=== PATIENT | female | born 1960 | race Caucasian/White ===

== ENCOUNTER → 2018-02-09 07:11 | Outpatient (CLI) | payer BC, SELFPAY ==
[2018-02-09 08:56] LABS: Cholesterol 202 mg/dL (140-199); HDL Cholesterol 67 mg/dL (40-60); LDL Cholesterol Calculated 108 mg/dL (<100); Triglycerides 133 mg/dL (35-150)
== END ==
PROVIDERS: PCP Family Medicine; Visit Provider Family Medicine
DX: E66.3 Overweight (principal)
CPT/HCPCS: 36415; 80061

== ENCOUNTER 2018-07-03 06:46 | Emergency (ER) | payer BC, SELFPAY ==
[2018-07-03 06:57] VITALS: BP 138/54; PULSE 92; RESP 18; TEMP 36.6; O2SAT 97; BMI 28.1
--- NOTE | 2018-07-03 06:58 | DI.RAD.S_ITS ---
PROCEDURE: XR CHEST 1V INDICATIONS: Cough and fever TECHNIQUE: One view of the chest was acquired. COMPARISON: None. FINDINGS: Surgical changes and devices: None. Lungs and pleura: No pleural effusions or pneumothorax. Lungs are clear. Mediastinum: Mediastinal contours appear normal. Heart size is normal. Bones and chest wall: No suspicious bony lesions. Overlying soft tissues appear unremarkable. IMPRESSION: No acute pulmonary process. Dictated by: Angela Cervantes M.D. on 07/03/2018 at 7:51 Approved by: Angela Cervantes M.D. on 07/03/2018 at 7:52
[2018-07-03] MEDS: ALBUTEROL/IPRATROPIUM 3 ML AMPUL INH (08:03)
[2018-07-03 08:04] VITALS: PULSE 76; RESP 17; O2SAT 98
[2018-07-03 08:19] LABS: Influenza A and B by PCR Rapid Negative (Negative)
--- NOTE | 2018-07-03 08:35 | ED.URI ---
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 She has a bronchospastic cough and her measured peak flows have dipped. She has increased use of her bronchodilators at home and low-grade, subjective fever. Her sputum has changed from clear to yellowish. She denies nausea, vomiting or diarrhea. She denies any recent travel but has exposure to plenty of ill persons MD Complaint: fever, cough, sore throat, rhinorrhea and nasal congestion Onset (ago): day(s) Duration: constant Severity: moderate Relieving factors: rest Description of mucous: clear and yellow Able to tolerate fluids by mouth: Yes Context: sick contacts Associated symptoms: fever, chills, voice changes, rhinorrhea, nasal congestion, sore throat and cough Treatments prior to arrival: none Related Data Home Medications Medication Instructions Recorded Confirmed [MAXIDE] #0 12/23/16 lisinopril [Zestril] #0 12/23/16 Calcium 600 with Vitamin D3 07/03/18 sertraline [Zoloft] 07/03/18 triamterene-hydrochlorothiazid 07/03/18 Previous Rx's Medication Instructions Recorded sulfamethoxazole-trimethoprim 1 tab PO BID #14 tab 12/23/16 albuterol sulfate 1 puff INHALATION Q4-6H PRN #8.5 07/03/18 gram benzonatate [Tessalon Perles] 100 mg PO QID PRN #20 cap 07/03/18 doxycycline hyclate 100 mg PO BID #20 tab 07/03/18 Allergies Allergy/AdvReac Type Severity Reaction Status Date / Time phenobarbital [PHENOBARBITAL] Allergy Mild hives Unverified 07/03/18 07:01 metronidazole [From FLAGYL] Allergy Unknown hives Unverified 07/03/18 07:01 Review of Systems Review of Systems All systems reviewed & are unremarkable except as noted in HPI and below Constitutional Denies chills, Denies fever(s), Denies lethargy and Denies weakness Eyes Denies change in vision, Denies eye discharge, Denies irritation and Denies loss of vision ENT Ears, Nose, Mouth, and Throat: Reports change in voice, Reports nasal congestion, Reports nasal discharge, Denies neck pain and Reports sore throat Cardiovascular Denies chest pain, Denies irregular heart rhythm, Denies lightheadedness, Denies palpitations, Reports dyspnea, Denies dyspnea on exertion and Denies orthopnea Respiratory Reports cough, Reports dyspnea, Denies dyspnea on exertion and Reports wheezing Gastrointestinal Gastrointestinal: Denies abdominal pain, Denies change in bowel habits, Denies diarrhea, Denies nausea and Denies vomiting Genitourinary Denies hematuria, Denies flank pain, Denies urinary incontinence and Denies urinary urgency Musculoskeletal Denies neck pain Integumentary/Breasts Denies pruritus, Denies erythema, Denies rash and Denies wounds Neurologic Denies confusion, Denies loss of vision and Denies weakness Psychiatric Denies anxiety, Denies confusion, Denies depression, Denies homicidal ideation and Denies suicidal ideation Endocrine Denies palpitations Hematologic/Lymphatic Denies easy bruising Allergic/Immunologic Reports wheezing [facility] Medical History C. difficile colitis (Acute) Colon cancer (Acute) Social History Smoking Status: Never smoker Exam Narrative Exam Narrative: GENERAL: 58-year-old female appears to not feel well. HEAD: Atraumatic. Normocephalic. No temporal or scalp tenderness. EYES: Pupils equal round and reactive. Extraocular motions intact. No scleral icterus. No injection or drainage. ENT: Clear nasal drainage bilaterally. Throat without erythema, tonsillar hypertrophy or exudate. Uvula midline. Airway patent. NECK: Trachea midline. No JVD or lymphadenopathy. Supple, nontender, no meningeal signs. CARDIOVASCULAR: Regular rate and rhythm without murmurs, gallops, or rubs. RESPIRATORY: Prolonged expiratory phase with expiratory wheeze in all hartman, no rales or rhonchi GASTROINTESTINAL: Abdomen soft, non-tender, nondistended. No hepato-splenomegaly, or palpable masses. No guarding. EXTREMITIES: No clubbing, cyanosis, or edema. No joint tenderness, effusion, or edema noted. BACK: Nontender without deformity or crepitance. No flank tenderness. NEURO: AOx3. SKIN: No rash or erythema. Initial Vital Signs Initial Vital Signs: Vital Signs Temperature 97.9 F 07/03/18 06:57 Pulse Rate 92 H 07/03/18 06:57 Respiratory Rate 18 07/03/18 06:57 Blood Pressure 138/54 L 07/03/18 06:57 Pulse Oximetry 97 07/03/18 06:57 Course Orders Ordered: ED Orders 07/03/18 06:58 XR chest 1V Stat 07/03/18 07:55 Influenza A and B by PCR Rapid Stat Discontinued Medications Albuterol/Ipratropium (Duoneb) 3 ml INH NOW ONE Stop: 07/03/18 07:48 Last Admin: 07/03/18 08:03 Dose: 3 ml Reevaluation(s) Reevaluation #1: Patient feels with marked improvement after bronchodilators Vital Signs - 8 hr 07/03/18 06:57 07/03/18 08:04 Temperature 97.9 F Pulse Rate 92 H 76 Respiratory Rate 18 17 Blood Pressure 138/54 L Pulse Oximetry 97 98 MDM - URI/Sore Throat Lab Data Lab Results 07/03/18 Range/Units 07:55 Influenza A & B (PCR) Negative (Negative) Imaging Data Chest x-ray: Radiologist's impression: CLOSE Chest X-Ray (Signed) Angela Cervantes - 07/03/18 Launch Image View Report History [address] [address] XRay Report Signed Patient: Nina Niño MR#: [id number] : 1960 Acct:[id number] Age/Sex: 58 / F Date of Service: 07/03/18 Loc: ED Accession Number: [id number] Procedure: XR chest 1V Ordering Provider: Elan Lockhart D.O. PROCEDURE: XR CHEST 1V INDICATIONS: Cough and fever TECHNIQUE: One view of the chest was acquired. COMPARISON: None. FINDINGS: Surgical changes and devices: None. Lungs and pleura: No pleural effusions or pneumothorax. Lungs are clear. Mediastinum: Mediastinal contours appear normal. Heart size is normal. Bones and chest wall: No suspicious bony lesions. Overlying soft tissues appear unremarkable. IMPRESSION: No acute pulmonary process. Dictated by: Angela Cervantes M.D. on 07/03/2018 at 7:51 Approved by: Angela Cervantes M.D. on 07/03/2018 at 7:52 Discharge Plan Departure Patient Disposition: Home Clinical Impression: Upper respiratory infection, viral Instructions: DI for Viral Upper Respiratory Infection -- Adult Activity Restrictions/Additional Instructions: *You have been diagnosed with [ acute viral upper respiratory infection ] *What to do: *Take medications as directed: Your prescriptions have been electronically transmitted to the [facility] at your request *Follow up with your primary care provider in 2-3 days, call for an appointment. Let them know you were seen in the Emergency Department and that we ask that you be seen in follow up *Return to ER if you should have any new, worsening or concerning symptoms Prescriptions: New doxycycline hyclate 100 mg tablet 100 mg PO BID Qty: 20 RF: 0 benzonatate [Tessalon Perles] 100 mg capsule 100 mg PO QID PRN (Reason: cough) Qty: 20 RF: 0 albuterol sulfate 90 mcg/actuation HFA aerosol inhaler 1 puff INHALATION Q4-6H PRN (Reason: bronchospasm) Qty: 8.5 RF: 0 No Action lisinopril [Zestril] 5 MG tablet Qty: 0 RF: 0 sulfamethoxazole-trimethoprim 800 MG/160 MG tablet 1 tab PO BID Qty: 14 RF: 0 [MAXIDE] Qty: 0 RF: 0 triamterene-hydrochlorothiazid 75-50 mg tablet RF: 0 sertraline [Zoloft] 50 mg tablet RF: 0 Calcium 600 with Vitamin D3 RF: 0 Referrals: Meli De La Paz MD [Primary Care Provider] -
[2018-07-03 08:39] VITALS: BP 118/66; PULSE 76; RESP 18; O2SAT 96
[2018-07-03 08:43] VITALS: BP 118/66; PULSE 76; RESP 20; TEMP 36.7; O2SAT 96
--- NOTE | 2018-07-03 08:44 | ED_ITS ---
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 She has a bronchospastic cough and her measured peak flows have dipped. She has increased use of her bronchodilators at home and low-grade, subjective fever. Her sputum has changed from clear to yellowish. She denies nausea, vomiting or diarrhea. She denies any recent travel but has exposure to plenty of ill persons MD Complaint: fever, cough, sore throat, rhinorrhea and nasal congestion Onset (ago): day(s) Duration: constant Severity: moderate Relieving factors: rest Description of mucous: clear and yellow Able to tolerate fluids by mouth: Yes Context: sick contacts Associated symptoms: fever, chills, voice changes, rhinorrhea, nasal congestion , sore throat and cough Treatments prior to arrival: none Related Data Home Medications Medication Instructions Recorded Confirmed [MAXIDE] #0 12/23/16 lisinopril [Zestril] #0 12/23/16 Calcium 600 with Vitamin D3 07/03/18 sertraline [Zoloft] 07/03/18 triamterene-hydrochlorothiazid 07/03/18 Previous Rx's Medication Instructions Recorded sulfamethoxazole-trimethoprim 1 tab PO BID #14 tab 12/23/16 albuterol sulfate 1 puff INHALATION Q4-6H PRN #8.5 07/03/18 gram benzonatate [Tessalon Perles] 100 mg PO QID PRN #20 cap 07/03/18 doxycycline hyclate 100 mg PO BID #20 tab 07/03/18 Allergies Allergy/AdvReac Type Severity Reaction Status Date / Time phenobarbital [PHENOBARBITAL] Allergy Mild hives Unverified 07/03/18 07:01 metronidazole [From FLAGYL] Allergy Unknown hives Unverified 07/03/18 07:01 Review of Systems Review of Systems All systems reviewed & are unremarkable except as noted in HPI and below Constitutional Denies chills, Denies fever(s), Denies lethargy and Denies weakness Eyes Denies change in vision, Denies eye discharge, Denies irritation and Denies loss of vision ENT Ears, Nose, Mouth, and Throat: Reports change in voice, Reports nasal congestion , Reports nasal discharge, Denies neck pain and Reports sore throat Cardiovascular Denies chest pain, Denies irregular heart rhythm, Denies lightheadedness, Denies palpitations, Reports dyspnea, Denies dyspnea on exertion and Denies orthopnea Respiratory Reports cough, Reports dyspnea, Denies dyspnea on exertion and Reports wheezing Gastrointestinal Gastrointestinal: Denies abdominal pain, Denies change in bowel habits, Denies diarrhea, Denies nausea and Denies vomiting Genitourinary Denies hematuria, Denies flank pain, Denies urinary incontinence and Denies urinary urgency Musculoskeletal Denies neck pain Integumentary/Breasts Denies pruritus, Denies erythema, Denies rash and Denies wounds Neurologic Denies confusion, Denies loss of vision and Denies weakness Psychiatric Denies anxiety, Denies confusion, Denies depression, Denies homicidal ideation and Denies suicidal ideation Endocrine Denies palpitations Hematologic/Lymphatic Denies easy bruising Allergic/Immunologic Reports wheezing [facility] Medical History C. difficile colitis (Acute) Colon cancer (Acute) Social History Smoking Status: Never smoker Exam Narrative Exam Narrative: GENERAL: 58-year-old female appears to not feel well. HEAD: Atraumatic. Normocephalic. No temporal or scalp tenderness. EYES: Pupils equal round and reactive. Extraocular motions intact. No scleral icterus. No injection or drainage. ENT: Clear nasal drainage bilaterally. Throat without erythema, tonsillar hypertrophy or exudate. Uvula midline. Airway patent. NECK: Trachea midline. No JVD or lymphadenopathy. Supple, nontender, no meningeal signs. CARDIOVASCULAR: Regular rate and rhythm without murmurs, gallops, or rubs. RESPIRATORY: Prolonged expiratory phase with expiratory wheeze in all hartman, no rales or rhonchi GASTROINTESTINAL: Abdomen soft, non-tender, nondistended. No hepato-splenomegaly , or palpable masses. No guarding. EXTREMITIES: No clubbing, cyanosis, or edema. No joint tenderness, effusion, or edema noted. BACK: Nontender without deformity or crepitance. No flank tenderness. NEURO: AOx3. SKIN: No rash or erythema. Initial Vital Signs Initial Vital Signs: Vital Signs Temperature 97.9 F 07/03/18 06:57 Pulse Rate 92 H 07/03/18 06:57 Respiratory Rate 18 07/03/18 06:57 Blood Pressure 138/54 L 07/03/18 06:57 Pulse Oximetry 97 07/03/18 06:57 Course Orders Ordered: ED Orders 07/03/18 06:58 XR chest 1V Stat 07/03/18 07:55 Influenza A and B by PCR Rapid Stat Discontinued Medications Albuterol/Ipratropium (Duoneb) 3 ml INH NOW ONE Stop: 07/03/18 07:48 Last Admin: 07/03/18 08:03 Dose: 3 ml Reevaluation(s) Reevaluation #1: Patient feels with marked improvement after bronchodilators Vital Signs - 8 hr 07/03/18 06:57 07/03/18 08:04 Temperature 97.9 F Pulse Rate 92 H 76 Respiratory Rate 18 17 Blood Pressure 138/54 L Pulse Oximetry 97 98 MDM - URI/Sore Throat Lab Data Lab Results 07/03/18 Range/Units 07:55 Influenza A & B (PCR) Negative (Negative) Imaging Data Chest x-ray: Radiologist's impression: CLOSE Chest X-Ray (Signed) Angela Cervantes - 07/03/18 Launch Image View Report History [address] [address] XRay Report Signed Patient: Nina Niño MR#: [id number] : 1960 Acct:[id number] Age/Sex: 58 / F Date of Service: 07/03/18 Loc: ED Accession Number: [id number] Procedure: XR chest 1V Ordering Provider: Elan Lockhart D.O. PROCEDURE: XR CHEST 1V INDICATIONS: Cough and fever TECHNIQUE: One view of the chest was acquired. COMPARISON: None. FINDINGS: Surgical changes and devices: None. Lungs and pleura: No pleural effusions or pneumothorax. Lungs are clear. Mediastinum: Mediastinal contours appear normal. Heart size is normal. Bones and chest wall: No suspicious bony lesions. Overlying soft tissues appear unremarkable. IMPRESSION: No acute pulmonary process. Dictated by: Angela Cervantes M.D. on 07/03/2018 at 7:51 Approved by: Angela Cervantes M.D. on 07/03/2018 at 7:52 Discharge Plan Departure Patient Disposition: Home Clinical Impression: Upper respiratory infection, viral Instructions: DI for Viral Upper Respiratory Infection -- Adult Activity Restrictions/Additional Instructions: *You have been diagnosed with [ acute viral upper respiratory infection ] *What to do: *Take medications as directed: Your prescriptions have been electronically transmitted to the [facility] at your request *Follow up with your primary care provider in 2-3 days, call for an appointment. Let them know you were seen in the Emergency Department and that we ask that you be seen in follow up *Return to ER if you should have any new, worsening or concerning symptoms Prescriptions: New doxycycline hyclate 100 mg tablet 100 mg PO BID Qty: 20 RF: 0 benzonatate [Tessalon Perles] 100 mg capsule 100 mg PO QID PRN (Reason: cough) Qty: 20 RF: 0 albuterol sulfate 90 mcg/actuation HFA aerosol inhaler 1 puff INHALATION Q4-6H PRN (Reason: bronchospasm) Qty: 8.5 RF: 0 No Action lisinopril [Zestril] 5 MG tablet Qty: 0 RF: 0 sulfamethoxazole-trimethoprim 800 MG/160 MG tablet 1 tab PO BID Qty: 14 RF: 0 [MAXIDE] Qty: 0 RF: 0 triamterene-hydrochlorothiazid 75-50 mg tablet RF: 0 sertraline [Zoloft] 50 mg tablet RF: 0 Calcium 600 with Vitamin D3 RF: 0 Referrals: Meli De La Paz MD [Primary Care Provider] -
== END 2018-07-03 08:42 | disposition home or self-care (01) ==
PROVIDERS: Emergency Provider Emergency Medicine; Family Provider Family Medicine; PCP Family Medicine
DX: J06.9 Acute upper respiratory infection, unspecified (principal)
CPT/HCPCS: 71045; 87400; 94640; 99282; 99284

== ENCOUNTER 2018-08-25 19:19 | Emergency (ER) | payer OTHER, SELFPAY ==
[2018-08-25 19:29] VITALS: BP 143/62; PULSE 65; RESP 17; TEMP 36.8; O2SAT 100
[2018-08-25] MEDS: SODIUM CHLORIDE 0.9% 1,000 ML 150 ML IV (19:40)
--- NOTE | 2018-08-25 19:57 | DI.RAD.S_ITS ---
PROCEDURE: XR CHEST 1V INDICATIONS: Right-sided chest pain and cough TECHNIQUE: One view of the chest was acquired. COMPARISON: [facility], CR, XR CHEST 1V, 07/03/2018, 7:25. FINDINGS: Surgical changes and devices: Fusion hardware in lower cervical spine seen.. Lungs and pleura: Lungs are clear. No pleural effusions or pneumothorax. Mediastinum: Mediastinal contours appear normal. Heart size is normal. Bones and chest wall: No suspicious bony lesions. Overlying soft tissues appear unremarkable. IMPRESSION: No acute pulmonary pathology. Dictated by: Rogers Turner M.D. on 08/25/2018 at 20:21 Approved by: Rogers Turner M.D. on 08/25/2018 at 20:21
[2018-08-25 20:00] VITALS: BP 121/50; PULSE 74; RESP 14; O2SAT 95
[2018-08-25 20:06] LABS: Add Manual Diff / Slide Review NO; Basophils Absolute Auto 0 /uL (0-100); Basophils Percent Auto 0.6 % (0-2); Eosinophils Absolute Auto 200 /uL (0-450); Hematocrit 41.8 % (36-46); Lymphocytes Absolute Auto 2000 /uL (1100-4500); Lymphocytes Percent Auto 30.6 % (25-40); Mean Corpuscular HGB Conc 33.6 % (30-36); Mean Corpuscular Hemoglobin 30.7 PG (26-34); Mean Corpuscular Volume 91.4 fL (80-100); Monocytes Absolute Auto 700 /uL (0-900); Monocytes Percent Auto 10.7 % (3-14); Neutrophils Absolute Auto 3500 /uL (1500-7000); Neutrophils Percent Auto 55.1 % (50-75); Platelet Count 378 X10^3/uL (150-400); Red Blood Cell Count 4.57 X10^6/uL (4.0-5.2); Red Cell Distribution Width 13.4 % (11.6-14.8); White Blood Cell Count 6.4 X10^3/uL (4.5-11.0)
[2018-08-25 20:10] LABS: D Dimer 257 ng/mL (<230)
[2018-08-25 20:18] LABS: Alanine Aminotransferase 23 IU/L (9-52); Albumin 4.9 g/dL (3.5-5.0); Albumin Globulin Ratio 1.3 (1.0-2.8); Alkaline Phosphatase 78 U/L (38-126); Aspartate Aminotransferase 23 IU/L (14-36); Bilirubin Total 0.4 mg/dL (0.2-1.3); Blood Urea Nitrogen 24 mg/dL (7-17); Calcium 10.7 mg/dL (8.4-10.2); Carbon Dioxide 28 mmol/L (22-32); Chloride 102 mmol/L (98-107); Creatine Kinase 61 U/L (30-135); Estimated Glomerular Filt Rate 46.1 mL/min (>60); Globulin 3.7 g/dL (1.7-4.1); Glucose 87 mg/dL (70-100); HEMOLYSIS < 15 (0-50); Lipase 303 U/L (23-300); Potassium 3.8 mmol/L (3.4-5.1); Sodium 141 mmol/L (137-145); Total Protein 8.6 g/dL (6.3-8.2)
[2018-08-25 20:19] LABS: Lactate (Lactic Acid) 1.1 mmol/L (0.7-2.1)
--- NOTE | 2018-08-25 20:21 | ED.CHESTPAIN ---
HPI - Chest Pain <SHAHNAZ Frey - Last Filed: 08/25/18 22:03> General Chief Complaint: Chest Pain Stated Complaint: PAIN IN RT SIDE OF CHEST Time Seen by Provider: 08/25/18 19:36 Source: patient Mode of arrival: ambulatory Limitations: no limitations History of Present Illness HPI narrative: 58-year-old healthy female that is a former smoker here for complaint of pain to her right chest over the past few days. She also reports she has had a productive cough during this timeframe. No fevers no chills. She does report that she has had 2 episodes of pneumonia over the past couple of months. She reports she has completed all of her antibiotics. She was admitted for 1 episode several weeks ago. She does state that her symptoms have resolved since then however she is concerned that her symptoms have returned over the past few days. Positive p.o. intake. No nausea vomiting. She denies any trauma to the chest wall. She is ambulatory into the emergency room. She denies any stressors or relievers of her symptoms. Related Data Home Medications Medication Instructions Recorded Confirmed [MAXIDE] #0 12/23/16 lisinopril [Zestril] #0 12/23/16 Calcium 600 with Vitamin D3 07/03/18 sertraline [Zoloft] 07/03/18 triamterene-hydrochlorothiazid 07/03/18 Previous Rx's Medication Instructions Recorded sulfamethoxazole-trimethoprim 1 tab PO BID #14 tab 12/23/16 albuterol sulfate 1 puff INHALATION Q4-6H PRN #8.5 07/03/18 gram benzonatate [Tessalon Perles] 100 mg PO QID PRN #20 cap 07/03/18 doxycycline hyclate 100 mg PO BID #20 tab 07/03/18 Allergies Allergy/AdvReac Type Severity Reaction Status Date / Time phenobarbital [PHENOBARBITAL] Allergy Mild hives Unverified 07/03/18 07:01 metronidazole [From FLAGYL] Allergy Unknown hives Unverified 07/03/18 07:01 Review of Systems <SHAHNAZ Frey - Last Filed: 08/25/18 22:03> Constitutional Denies chills, Denies fever(s), Denies lethargy and Denies weakness Eyes Denies change in vision, Denies eye discharge, Denies irritation and Denies loss of vision ENT Ears, Nose, Mouth, and Throat: Denies change in voice, Denies neck pain, Denies sore throat and Denies throat swelling Cardiovascular Reports chest pain, Denies irregular heart rhythm, Denies lightheadedness, Denies palpitations and Denies orthopnea Respiratory Reports cough and Denies wheezing Gastrointestinal Gastrointestinal: Denies abdominal pain, Denies change in bowel habits, Denies diarrhea, Denies nausea and Denies vomiting Genitourinary Denies hematuria, Denies flank pain, Denies urinary incontinence and Denies urinary urgency Musculoskeletal Denies neck pain Neurologic Denies confusion, Denies loss of vision and Denies weakness Psychiatric Denies anxiety, Denies confusion, Denies depression, Denies homicidal ideation and Denies suicidal ideation Endocrine Denies palpitations Hematologic/Lymphatic Denies easy bruising Allergic/Immunologic Denies urticaria, Denies throat swelling and Denies wheezing PFSH <SHAHNAZ Frey - Last Filed: 08/25/18 22:03> Medical History C. difficile colitis (Acute) Colon cancer (Acute) Social History Smoking Status: Never smoker Social History Smoking Status: Never smoker Exam <SHAHNAZ Frey - Last Filed: 08/25/18 22:03> Initial Vital Signs Initial Vital Signs: Vital Signs Temperature 98.2 F 08/25/18 19:29 Pulse Rate 65 08/25/18 19:29 Respiratory Rate 17 08/25/18 19:29 Blood Pressure 143/62 H 08/25/18 19:29 Pulse Oximetry 100 08/25/18 19:29 Const General: cooperative and well developed Nutritional Appearance: well nourished Orientation: alert, awake, oriented x3 and not confused HENMN Mouth: oral mucosae normal and moist mucous membranes Throat: posterior oropharynx normal Eyes Conjunctivae: conjunctivae normal Sclera: sclerae normal Pupils: PERRL EOM: EOM intact bilaterally Resp Effort & Inspection: normal respiratory effort, able to speak in complete sentences, no respiratory distress and no use of accessory muscles Auscultation: clear to auscultation bilaterally, no rales, no rhonchi and no wheezes Cardio Rate: regular rate Rhythm: regular rhythm Heart Sounds: no click, no gallops, no murmurs and no rubs Skin General: no rashes or lesions noted, No jaundice and No petechiae Neuro General: alert, oriented x3, gait normal and no focal motor deficits Speech: speech normal <Mariam Robert DO - Last Filed: 08/26/18 02:09> Initial Vital Signs Initial Vital Signs: Vital Signs Temperature 98.2 F 08/25/18 19:29 Pulse Rate 65 08/25/18 19:29 Respiratory Rate 17 08/25/18 19:29 Blood Pressure 143/62 H 08/25/18 19:29 Pulse Oximetry 100 08/25/18 19:29 Course <SHAHNAZ Frey - Last Filed: 08/25/18 22:03> Orders Ordered: ED Orders 08/25/18 19:29 EKG-12 Lead Stat 08/25/18 19:40 Complete Blood Count AUTO DIFF Stat Comprehensive Metabolic Panel Stat D Dimer Stat Lactate (Lactic Acid) Stat Lipase Stat Procalcitonin Stat Troponin & CK Cardiac Panel Stat 08/25/18 19:57 XR chest 1V Stat Discontinued Medications Sodium Chloride (Normal Saline 0.9%) 1,000 mls @ 150 mls/hr IV CONT EVERT Last Infusion: 08/25/18 21:20 Dose: 150 mls/hr Admin: 08/25/18 19:40 Dose: 150 mls/hr Vital Signs - 8 hr 08/25/18 19:29 08/25/18 20:00 08/25/18 20:30 Temperature 98.2 F Pulse Rate 65 74 72 Respiratory Rate 17 14 16 Blood Pressure 143/62 H Blood Pressure [Left Arm] 121/50 L 121/44 L Pulse Oximetry 100 95 96 <Mariam Robert DO - Last Filed: 08/26/18 02:09> Orders Ordered: ED Orders 08/25/18 19:29 EKG-12 Lead Stat 08/25/18 19:40 Complete Blood Count AUTO DIFF Stat Comprehensive Metabolic Panel Stat D Dimer Stat Lactate (Lactic Acid) Stat Lipase Stat Procalcitonin Stat Troponin & CK Cardiac Panel Stat 08/25/18 19:57 XR chest 1V Stat Discontinued Medications Sodium Chloride (Normal Saline 0.9%) 1,000 mls @ 150 mls/hr IV CONT EVERT Last Infusion: 08/25/18 21:20 Dose: 150 mls/hr Admin: 08/25/18 19:40 Dose: 150 mls/hr Vital Signs - 8 hr 08/25/18 19:29 08/25/18 20:00 08/25/18 20:30 Temperature 98.2 F Pulse Rate 65 74 72 Respiratory Rate 17 14 16 Blood Pressure 143/62 H Blood Pressure [Left Arm] 121/50 L 121/44 L Pulse Oximetry 100 95 96 MDM - Chest Pain <SHAHNAZ Frey - Last Filed: 08/25/18 22:03> Lab Data Result diagrams: 08/25/18 19:40 08/25/18 19:40 Lab Results 08/25/18 08/25/18 08/25/18 Range/Units 19:40 19:40 19:40 WBC 6.4 (4.5-11.0) X10^3/uL RBC 4.57 (4.0-5.2) X10^6/uL Hgb 14.0 (12.0-16.0) g/dL Hct 41.8 (36-46) % MCV 91.4 (80-100) fL MCH 30.7 (26-34) PG MCHC 33.6 (30-36) % RDW 13.4 (11.6-14.8) % Plt Count 378 (150-400) X10^3/uL Neut % (Auto) 55.1 (50-75) % Lymph % (Auto) 30.6 (25-40) % [place] % (Auto) 10.7 (3-14) % Eos % (Auto) 3.0 (2-4) % Baso % (Auto) 0.6 (0-2) % Neut # (Auto) 3500 (9960-8217) /uL Lymph # (Auto) 2000 (3452-6547) /uL [place] # (Auto) 700 (0-900) /uL Eos # (Auto) 200 (0-450) /uL Baso # (Auto) 0 (0-100) /uL D-Dimer 257 H (<230) ng/mL Sodium 141 (137-145) mmol/L Potassium 3.8 (3.4-5.1) mmol/L Chloride 102 (98-107) mmol/L Carbon Dioxide 28 (22-32) mmol/L BUN 24 H (7-17) mg/dL Creatinine 1.20 H (0.52-1.04) mg/dL Estimated GFR 46.1 L (>60) mL/min BUN/Creatinine Ratio 20.0 (6-22) Glucose 87 (70-100) mg/dL Lactate (0.7-2.1) mmol/L Calcium 10.7 H (8.4-10.2) mg/dL Total Bilirubin 0.4 (0.2-1.3) mg/dL AST 23 (14-36) IU/L ALT 23 (9-52) IU/L Alkaline Phosphatase 78 (38-126) U/L Total Creatine Kinase 61 (30-135) U/L CK-MB (CK-2) TNP CK-MB (CK-2) Rel Index TNP Troponin I < 0.012 (0.01-0.034) ng/mL Total Protein 8.6 H (6.3-8.2) g/dL Albumin 4.9 (3.5-5.0) g/dL Globulin 3.7 (1.7-4.1) g/dL Albumin/Globulin Ratio 1.3 (1.0-2.8) Lipase 303 H (23-300) U/L Procalcitonin (<0.5) ng/mL 08/25/18 08/25/18 Range/Units 19:40 19:40 WBC (4.5-11.0) X10^3/uL RBC (4.0-5.2) X10^6/uL Hgb (12.0-16.0) g/dL Hct (36-46) % MCV (80-100) fL MCH (26-34) PG MCHC (30-36) % RDW (11.6-14.8) % Plt Count (150-400) X10^3/uL Neut % (Auto) (50-75) % Lymph % (Auto) (25-40) % [place] % (Auto) (3-14) % Eos % (Auto) (2-4) % Baso % (Auto) (0-2) % Neut # (Auto) (7803-2930) /uL Lymph # (Auto) (8286-8497) /uL [place] # (Auto) (0-900) /uL Eos # (Auto) (0-450) /uL Baso # (Auto) (0-100) /uL D-Dimer (<230) ng/mL Sodium (137-145) mmol/L Potassium (3.4-5.1) mmol/L Chloride (98-107) mmol/L Carbon Dioxide (22-32) mmol/L BUN (7-17) mg/dL Creatinine (0.52-1.04) mg/dL Estimated GFR (>60) mL/min BUN/Creatinine Ratio (6-22) Glucose (70-100) mg/dL Lactate 1.1 (0.7-2.1) mmol/L Calcium (8.4-10.2) mg/dL Total Bilirubin (0.2-1.3) mg/dL AST (14-36) IU/L ALT (9-52) IU/L Alkaline Phosphatase (38-126) U/L Total Creatine Kinase (30-135) U/L CK-MB (CK-2) CK-MB (CK-2) Rel Index Troponin I (0.01-0.034) ng/mL Total Protein (6.3-8.2) g/dL Albumin (3.5-5.0) g/dL Globulin (1.7-4.1) g/dL Albumin/Globulin Ratio (1.0-2.8) Lipase (23-300) U/L Procalcitonin < 0.05 (<0.5) ng/mL Urine Dip Bedside Urine Glucose Negative Bedside Urine Bilirubin - Negative Bedside Urine Ketone - Negative Urine Specific [place] 1.025 Bedside Urine Occult Blood - Negative Bedside Urine pH 6.0 Bedside Urine Protein - Negative Bedside Urine Urobilinogen - Negative Bedside Urine Nitrite - Negative Bedside Urine Leukocytes - Negative Esterase Imaging Data Chest x-ray: Radiologist's impression: [address] [address] XRay Report Signed Patient: Nina NiñonMR#: [id number] : 1960Acct:[id number] Age/Sex: 58 / FDate of Service: 08/25/18 Loc: ED Accession Number: [id number] Procedure: XR chest 1V Ordering Provider: Norris Lee PROCEDURE: XR CHEST 1V INDICATIONS: Right-sided chest pain and cough TECHNIQUE: One view of the chest was acquired. COMPARISON: [facility], CR, XR CHEST 1V, 07/03/2018, 7:25. FINDINGS: Surgical changes and devices: Fusion hardware in lower cervical spine seen.. Lungs and pleura: Lungs are clear. No pleural effusions or pneumothorax. Mediastinum: Mediastinal contours appear normal. Heart size is normal. Bones and chest wall: No suspicious bony lesions. Overlying soft tissues appear unremarkable. IMPRESSION: No acute pulmonary pathology. Dictated by: Rogers Turner M.D. on 08/25/2018 at 20:21 Approved by: Rogers Turner M.D. on 08/25/2018 at 20:21 ECG Data Interpretation: EKG shows normal sinus rhythm with no ST elevation or depression. No ectopy. Ventricular rate is 66. Pr interval of 166. QRS duration 94. QTC of 406. MDM Narrative Medical decision making narrative: Chest x-ray was obtained was negative for any acute findings. CBC and Chem panel were also obtained and were unremarkable. No elevated white count. D-dimer was unremarkable at 257. Cardiac enzymes were obtained were negative. Procalcitonin and lactate were normal. EKG shows sinus rhythm with no ST elevation or depression. No ectopy. Differential between cough and chest pain is chest wall pain/pleurisy and viral illness. Plenty of fluids and rest. [id number] ibuprofen as needed for any discomfort. Follow up with primary care provider next few days for re-evaluation. For any worsening symptoms return to the emergency room. <Mariam Robert DO - Last Filed: 08/26/18 02:09> Lab Data Lab Results 08/25/18 08/25/18 08/25/18 Range/Units 19:40 19:40 19:40 WBC 6.4 (4.5-11.0) X10^3/uL RBC 4.57 (4.0-5.2) X10^6/uL Hgb 14.0 (12.0-16.0) g/dL Hct 41.8 (36-46) % MCV 91.4 (80-100) fL MCH 30.7 (26-34) PG MCHC 33.6 (30-36) % RDW 13.4 (11.6-14.8) % Plt Count 378 (150-400) X10^3/uL Neut % (Auto) 55.1 (50-75) % Lymph % (Auto) 30.6 (25-40) % [place] % (Auto) 10.7 (3-14) % Eos % (Auto) 3.0 (2-4) % Baso % (Auto) 0.6 (0-2) % Neut # (Auto) 3500 (7834-2752) /uL Lymph # (Auto) 2000 (3267-6468) /uL [place] # (Auto) 700 (0-900) /uL Eos # (Auto) 200 (0-450) /uL Baso # (Auto) 0 (0-100) /uL D-Dimer 257 H (<230) ng/mL Sodium 141 (137-145) mmol/L Potassium 3.8 (3.4-5.1) mmol/L Chloride 102 (98-107) mmol/L Carbon Dioxide 28 (22-32) mmol/L BUN 24 H (7-17) mg/dL Creatinine 1.20 H (0.52-1.04) mg/dL Estimated GFR 46.1 L (>60) mL/min BUN/Creatinine Ratio 20.0 (6-22) Glucose 87 (70-100) mg/dL Lactate (0.7-2.1) mmol/L Calcium 10.7 H (8.4-10.2) mg/dL Total Bilirubin 0.4 (0.2-1.3) mg/dL AST 23 (14-36) IU/L ALT 23 (9-52) IU/L Alkaline Phosphatase 78 (38-126) U/L Total Creatine Kinase 61 (30-135) U/L CK-MB (CK-2) TNP CK-MB (CK-2) Rel Index TNP Troponin I < 0.012 (0.01-0.034) ng/mL Total Protein 8.6 H (6.3-8.2) g/dL Albumin 4.9 (3.5-5.0) g/dL Globulin 3.7 (1.7-4.1) g/dL Albumin/Globulin Ratio 1.3 (1.0-2.8) Lipase 303 H (23-300) U/L Procalcitonin (<0.5) ng/mL 08/25/18 08/25/18 Range/Units 19:40 19:40 WBC (4.5-11.0) X10^3/uL RBC (4.0-5.2) X10^6/uL Hgb (12.0-16.0) g/dL Hct (36-46) % MCV (80-100) fL MCH (26-34) PG MCHC (30-36) % RDW (11.6-14.8) % Plt Count (150-400) X10^3/uL Neut % (Auto) (50-75) % Lymph % (Auto) (25-40) % [place] % (Auto) (3-14) % Eos % (Auto) (2-4) % Baso % (Auto) (0-2) % Neut # (Auto) (4798-8644) /uL Lymph # (Auto) (0582-1166) /uL [place] # (Auto) (0-900) /uL Eos # (Auto) (0-450) /uL Baso # (Auto) (0-100) /uL D-Dimer (<230) ng/mL Sodium (137-145) mmol/L Potassium (3.4-5.1) mmol/L Chloride (98-107) mmol/L Carbon Dioxide (22-32) mmol/L BUN (7-17) mg/dL Creatinine (0.52-1.04) mg/dL Estimated GFR (>60) mL/min BUN/Creatinine Ratio (6-22) Glucose (70-100) mg/dL Lactate 1.1 (0.7-2.1) mmol/L Calcium (8.4-10.2) mg/dL Total Bilirubin (0.2-1.3) mg/dL AST (14-36) IU/L ALT (9-52) IU/L Alkaline Phosphatase (38-126) U/L Total Creatine Kinase (30-135) U/L CK-MB (CK-2) CK-MB (CK-2) Rel Index Troponin I (0.01-0.034) ng/mL Total Protein (6.3-8.2) g/dL Albumin (3.5-5.0) g/dL Globulin (1.7-4.1) g/dL Albumin/Globulin Ratio (1.0-2.8) Lipase (23-300) U/L Procalcitonin < 0.05 (<0.5) ng/mL Urine Dip Bedside Urine Glucose Negative Bedside Urine Bilirubin - Negative Bedside Urine Ketone - Negative Urine Specific [place] 1.025 Bedside Urine Occult Blood - Negative Bedside Urine pH 6.0 Bedside Urine Protein - Negative Bedside Urine Urobilinogen - Negative Bedside Urine Nitrite - Negative Bedside Urine Leukocytes - Negative Esterase ECG Data Attestation: I personally reviewed and interpreted this ECG as follows: Prior ECG tracings: not available for review Interpretation: Normal sinus rhythm rate 66 T-wave inversion noted in lead [address] elevations or depressions is UT interval 166 no priors to compare Discharge Plan Departure Patient Disposition: Home Clinical Impression: Anterior chest wall pain, Atypical chest pain Discharge Date/Time: 08/25/18 21:14 Interventions: ED Discharge Assessment Last Done: 08/25/18 21:24 Instructions: DI for Atypical Chest Pain Activity Restrictions/Additional Instructions: Chest x-ray read was normal today. Laboratory results were unremarkable. EKG was unremarkable. Differential diagnosis between cough and chest pain is chest wall pain/pleurisy and viral illness. Plenty of fluids and rest. [id number] ibuprofen as needed for any discomfort. Follow up with primary care provider next few days for re-evaluation. For any worsening symptoms return to the emergency room. Prescriptions: No Action lisinopril [Zestril] 5 MG tablet Qty: 0 RF: 0 sulfamethoxazole-trimethoprim 800 MG/160 MG tablet 1 tab PO BID Qty: 14 RF: 0 [MAXIDE] Qty: 0 RF: 0 triamterene-hydrochlorothiazid 75-50 mg tablet RF: 0 sertraline [Zoloft] 50 mg tablet RF: 0 Calcium 600 with Vitamin D3 RF: 0 doxycycline hyclate 100 mg tablet 100 mg PO BID Qty: 20 RF: 0 benzonatate [Tessalon Perles] 100 mg capsule 100 mg PO QID PRN (Reason: cough) Qty: 20 RF: 0 albuterol sulfate 90 mcg/actuation HFA aerosol inhaler 1 puff INHALATION Q4-6H PRN (Reason: bronchospasm) Qty: 8.5 RF: 0 Referrals: Meli De La Paz MD [Primary Care Provider] - <Mariam Robert DO - Last Filed: 08/26/18 02:09> Cosign ED Attending Coszhannaature Attestation: I was immediately available in the department for consultation. Documentation has been reviewed. I agree with assessment and plan.
[2018-08-25 20:30] VITALS: BP 121/44; PULSE 72; RESP 16; O2SAT 96
[2018-08-25 20:41] LABS: Troponin I < 0.012 ng/mL (0.01-0.034)
[2018-08-25 20:47] LABS: Procalcitonin < 0.05 ng/mL (<0.5)
== END 2018-08-25 21:14 | disposition home or self-care (01) ==
PROVIDERS: Emergency Provider Nurse Practitioner Family; Family Provider Family Medicine; PCP Family Medicine
DX: R07.89 Other chest pain (principal)
CPT/HCPCS: 36591; 71045; 80053; 81003; 82550; 83605; 83690; 84145; 84484; 85025; 85379; 93005; 96360; 96361; 99283; 99285

== ENCOUNTER → 2018-11-09 10:59 | Outpatient (CLI) | payer OTHER, SELFPAY ==
--- NOTE | 2018-11-09 11:01 | DI.RAD.S_ITS ---
PROCEDURE: XR CHEST 2V INDICATIONS: cough TECHNIQUE: 2 views of the chest were acquired. COMPARISON: [facility], CR, XR CHEST 1V, 08/25/2018, 20:06. [facility], CR, XR CHEST 1V, 07/03/2018, 7:25. FINDINGS: Surgical changes and devices: Lower cervical spine fusion. Lungs and pleura: Lungs are clear. No pleural effusions or pneumothorax. Mediastinum: Mediastinal contours are normal. Heart size is normal. Bones and chest wall: No suspicious bony abnormalities. Soft tissues appear unremarkable. IMPRESSION: No acute cardiopulmonary disease. Dictated by: Shelley Tanner M.D. on 11/09/2018 at 13:10 Approved by: Shelley Tnaner M.D. on 11/09/2018 at 13:10
== END ==
PROVIDERS: Visit Provider Physician Assistant
DX: R05 Cough (principal)
CPT/HCPCS: 71046

== ENCOUNTER → 2019-05-18 07:09 | Outpatient (CLI) | payer OTHER, SELFPAY ==
[2019-05-18 07:55] LABS: Add Manual Diff / Slide Review NO; Basophils Absolute Auto 0 /uL (0-100); Basophils Percent Auto 0.7 % (0-2); Eosinophils Absolute Auto 200 /uL (0-450); Eosinophils Percent Auto 2.6 % (2-4); Hematocrit 39.4 % (36-46); Hemoglobin 13.6 g/dL (12.0-16.0); Lymphocytes Absolute Auto 1300 /uL (1100-4500); Lymphocytes Percent Auto 21.8 % (25-40); Mean Corpuscular HGB Conc 34.4 % (30-36); Mean Corpuscular Hemoglobin 31.2 PG (26-34); Mean Corpuscular Volume 90.6 fL (80-100); Monocytes Absolute Auto 600 /uL (0-900); Monocytes Percent Auto 10.3 % (3-14); Neutrophils Absolute Auto 3900 /uL (1500-7000); Neutrophils Percent Auto 64.6 % (50-75); Platelet Count 329 X10^3/uL (150-400); Red Blood Cell Count 4.35 X10^6/uL (4.0-5.2); Red Cell Distribution Width 13.1 % (11.6-14.8)
[2019-05-18 08:14] LABS: Alanine Aminotransferase 17 IU/L (<35); Albumin 4.5 g/dL (3.5-5.0); Albumin Globulin Ratio 1.6 (1.0-2.8); Alkaline Phosphatase 90 U/L (38-126); Aspartate Aminotransferase 20 IU/L (14-36); Bilirubin Total 0.7 mg/dL (0.2-1.3); Blood Urea Nitrogen 23 mg/dL (7-17); Calcium 10.2 mg/dL (8.4-10.2); Carbon Dioxide 27 mmol/L (22-32); Chloride 102 mmol/L (98-107); Cholesterol 247 mg/dL (140-199); Estimated Glomerular Filt Rate 56.7 mL/min (>60); Globulin 2.8 g/dL (1.7-4.1); Glucose 106 mg/dL (70-100); HDL Cholesterol 60 mg/dL (40-60); HEMOLYSIS < 15 (0-50); LDL Cholesterol Calculated 151 mg/dL (<100); Sodium 139 mmol/L (137-145); Total Protein 7.3 g/dL (6.3-8.2); Triglycerides 182 mg/dL (35-150)
[2019-05-18 08:29] LABS: Creatinine Urine Random 131.7 mg/dL
[2019-05-18 08:31] LABS: Free T3, Triiodothyronine Free 3.71 pg/mL (2.77-5.27); Free T4, Direct Thyroxine 0.81 ng/dL (0.78-2.19)
[2019-05-18 08:33] LABS: Microalbumi Creatinin Ratio Ur 6.8 ug/mg CR (<30); Microalbumin Urine Random 0.9 mg/dL (0-1.6)
[2019-05-18 08:44] LABS: Thyroid Stimulating Hormone 3.29 uIU/mL (0.47-4.68)
== END ==
PROVIDERS: Visit Provider Nurse Practitioner
DX: Z00.00 Encounter for general adult medical examination without abnormal findings (principal); E78.5 Hyperlipidemia, unspecified; I10 Essential (primary) hypertension
CPT/HCPCS: 36415; 80053; 80061; 82043; 82570; 84439; 84443; 84481; 85025

== ENCOUNTER → 2019-06-21 17:27 | Outpatient (CLI) | payer OTHER, SELFPAY ==
--- NOTE | 2019-06-21 17:28 | DI.MG.S_ITS ---
BILATERAL DIGITAL SCREENING MAMMOGRAM 3D/2D WITH CAD: 06/21/2019 CLINICAL: Routine screening. Family history of breast cancer. Comparison is made to exams dated: 10/16/2017 mammogram, 01/26/2015 mammogram, and 01/27/2014 mammogram - [facility]. There are scattered fibroglandular elements in both breasts. Current study was also evaluated with a Computer Aided Detection (CAD) system. No significant masses, calcifications, or other findings are seen in either breast. There has been no significant interval change. IMPRESSION: NEGATIVE There is no mammographic evidence of malignancy. A 1 year screening mammogram is recommended. This exam was interpreted at Station ID: [id number]. NOTE: For mammograms, a report in lay terms will be sent to the patient. Approximately 15% of breast malignancies will not be visualized mammographically. In the management of a palpable breast mass, a negative mammogram must not discourage biopsy of a clinically suspicious lesion. Electronically Signed By: Armando pollard/anna marie:06/22/2019 07:49:40 letter sent: Normal Exam ACR BI-RADS Category 1: Negative [id number]
== END ==
PROVIDERS: PCP Nurse Practitioner; Visit Provider Nurse Practitioner
DX: Z12.31 Encounter for screening mammogram for malignant neoplasm of breast (principal); Z80.3 Family history of malignant neoplasm of breast
CPT/HCPCS: 77063; 77067

== ENCOUNTER → 2020-07-10 15:01 | Outpatient (CLI) | payer OTHER, SELFPAY ==
--- NOTE | 2020-07-10 15:02 | DI.MG.S_ITS ---
BILATERAL DIGITAL SCREENING MAMMOGRAM 3D/2D WITH CAD: 07/10/2020 CLINICAL: Routine screening. Family history of breast cancer. Comparison is made to exams dated: 06/21/2019 mammogram, 10/16/2017 mammogram, and 01/26/2015 mammogram - [facility]. There are scattered fibroglandular elements in both breasts. Current study was also evaluated with a Computer Aided Detection (CAD) system. No significant masses, calcifications, or other findings are seen in either breast. There has been no significant interval change. IMPRESSION: NEGATIVE There is no mammographic evidence of malignancy. A 1 year screening mammogram is recommended. This exam was interpreted at Station ID: [id number]. NOTE: For mammograms, a report in lay terms will be sent to the patient. Approximately 15% of breast malignancies will not be visualized mammographically. In the management of a palpable breast mass, a negative mammogram must not discourage biopsy of a clinically suspicious lesion. Electronically Signed By: Donald fitzpatrick/anna marie:07/10/2020 16:26:37 letter sent: Normal Exam ACR BI-RADS Category 1: Negative [id number]
== END ==
PROVIDERS: PCP Nurse Practitioner; Referring Provider Nurse Practitioner; Visit Provider Nurse Practitioner
DX: Z12.31 Encounter for screening mammogram for malignant neoplasm of breast (principal); Z80.3 Family history of malignant neoplasm of breast
CPT/HCPCS: 77063; 77067

== ENCOUNTER → 2020-08-14 10:02 | Outpatient (CLI) | payer OTHER, SELFPAY ==
[2020-08-14 10:56] LABS: Hemoglobin A1C% w Est Avg Glu 5.5 % (4.0-6.0)
[2020-08-14 11:02] LABS: Add Manual Diff / Slide Review NO; Basophils Absolute Auto 0 /uL (0-100); Basophils Percent Auto 0.8 % (0-2); Eosinophils Absolute Auto 100 /uL (0-450); Eosinophils Percent Auto 2.6 % (2-4); Hematocrit 40.4 % (36-46); Hemoglobin 13.7 g/dL (12.0-16.0); Lymphocytes Absolute Auto 1200 /uL (1100-4500); Lymphocytes Percent Auto 21.5 % (25-40); Mean Corpuscular Hemoglobin 30.4 PG (26-34); Mean Corpuscular Volume 89.5 fL (80-100); Monocytes Absolute Auto 500 /uL (0-900); Monocytes Percent Auto 8.9 % (3-14); Neutrophils Absolute Auto 3800 /uL (1500-7000); Neutrophils Percent Auto 66.2 % (50-75); Platelet Count 315 X10^3/uL (150-400); Red Blood Cell Count 4.52 X10^6/uL (4.0-5.2); Red Cell Distribution Width 13.2 % (11.6-14.8); White Blood Cell Count 5.7 X10^3/uL (4.5-11.0)
[2020-08-14 11:05] LABS: Alanine Aminotransferase 27 IU/L (<35); Albumin 4.4 g/dL (3.5-5.0); Albumin Globulin Ratio 1.4 (1.0-2.8); Alkaline Phosphatase 100 U/L (38-126); Aspartate Aminotransferase 25 IU/L (14-36); BUN Creatinine Ratio 19.6 (6-22); Bilirubin Total 0.5 mg/dL (0.2-1.3); Blood Urea Nitrogen 20 mg/dL (7-17); Calcium 10.2 mg/dL (8.4-10.2); Carbon Dioxide 30 mmol/L (22-32); Chloride 103 mmol/L (98-107); Cholesterol 264 mg/dL (140-199); Estimated Glomerular Filt Rate 55.3 mL/min (>60); Globulin 3.1 g/dL (1.7-4.1); Glucose 117 mg/dL (80-110); HDL Cholesterol 69 mg/dL (40-60); HEMOLYSIS < 15 (0-50); LDL Cholesterol Calculated 150 mg/dL (<100); Potassium 4.2 mmol/L (3.4-5.1); Sodium 138 mmol/L (137-145); Total Protein 7.5 g/dL (6.3-8.2); Triglycerides 225 mg/dL (35-150)
[2020-08-14 11:29] LABS: Free T3, Triiodothyronine Free 3.99 pg/mL (2.77-5.27); Free T4, Direct Thyroxine 0.83 ng/dL (0.78-2.19)
[2020-08-14 11:43] LABS: Thyroid Stimulating Hormone 1.77 uIU/mL (0.47-4.68)
[2020-08-14 14:23] LABS: Creatinine Urine Random 190.1 mg/dL
[2020-08-14 14:26] LABS: Microalbumi Creatinin Ratio Ur 4.7 ug/mg CR (<30); Microalbumin Urine Random 0.9 mg/dL (0-1.6)
== END ==
PROVIDERS: PCP Nurse Practitioner; Referring Provider Nurse Practitioner; Visit Provider Nurse Practitioner
DX: Z00.00 Encounter for general adult medical examination without abnormal findings (principal); L65.9 Nonscarring hair loss, unspecified; L67.9 Hair color and hair shaft abnormality, unspecified; R23.2 Flushing; R63.5 Abnormal weight gain
CPT/HCPCS: 36415; 80053; 80061; 82043; 82570; 83036; 84439; 84443; 84481; 85025

== ENCOUNTER → 2020-09-26 12:46 | Outpatient (CLI) | payer OTHER, SELFPAY ==
--- NOTE | 2020-09-26 12:47 | DI.RAD.S_ITS ---
PROCEDURE: XR CERVICAL SPINE 2V OR 3V INDICATIONS: evaluate neck hardware TECHNIQUE: 3 view(s) of the cervical spine were acquired. COMPARISON: None. FINDINGS: Bones: No acute fracture seen. Postsurgical change related to C5-C7 ACDF, with chronic osseous fusion of the C5-C6 and C6-C7 vertebral bodies. Hardware appears intact. Expected postop alignment. Grade 1 anterolisthesis of C4 on C5. Mild narrowing of the C4-C5 disc space. Soft tissues: No prevertebral soft tissue swelling. IMPRESSION: Postsurgical and degenerative changes as above. Grade 1 anterolisthesis at the superior unfused segment. Diffuse facet arthropathy Dictated by: Fermin Tinoco M.D. on 09/26/2020 at 14:05 Approved by: Fermin Tinoco M.D. on 09/26/2020 at 14:06
== END ==
PROVIDERS: PCP Nurse Practitioner; Referring Provider Nurse Practitioner; Visit Provider Nurse Practitioner
DX: M47.812 Spondylosis without myelopathy or radiculopathy, cervical region (principal); M54.2 Cervicalgia; Z98.890 Other specified postprocedural states; V89.2XXA Person injured in unspecified motor-vehicle accident, traffic, initial encounter
CPT/HCPCS: 72040

== ENCOUNTER 2020-10-28 01:06 | Emergency (ER) | payer OTHER, SELFPAY ==
--- NOTE | 2020-10-28 01:09 | ED_ITS ---
HPI - SOB/Dyspnea General Chief Complaint: Shortness of Breath/Dyspnea Stated Complaint: Asthma/sob Time Seen by Provider: 10/28/20 01:09 Source: patient and family Mode of arrival: Ambulatory Limitations: no limitations History of Present Illness HPI Narrative: 60-year-old female nonsmoker with history of hypertension and asthma presents with her in the chief complaint of about a week of various upper respiratory complaints including nasal congestion, runny nose, initially a sore throat but ongoing bronchospastic cough. Tonight her cough is become so bad that she is unable to sleep. She states it is very bronchospastic, hacking in nature and denies any production of sputum. She has no chest pain nor nausea or vomiting. She had a low measured fever about a week ago and multiple family members with similar symptoms. She denies recent travel, hemoptysis, prior PE or DVT. She has had little change at home after use of bronchodilators with a chamber MD Complaint: cough Onset (ago): day(s) Context: recent illness Consistency/Duration: constant Relieving factors: nothing Exacerbating factors: coughing and inspiration Known history of: asthma Treatment prior to arrival: bronchodilator Related Data Home Medications Medication Instructions Recorded Confirmed Calcium 600 with Vitamin D3 07/03/18 01/25/20 Previous Rx's Medication Instructions Recorded albuterol sulfate 90 mcg/actuation 1 puff INHALATION Q4-6H PRN #6.7 05/13/19 aerosol inhaler gram lisinopril 5 mg tablet 5 mg PO DAILY #90 tab 05/21/20 triamterene 75 1 tab PO DAILY #90 tab 05/21/20 mg-hydrochlorothiazide 50 mg tablet sertraline 100 mg tablet 100 mg PO DAILY #90 tab 09/21/20 prednisone See Rx Instructions .ROUTE 10/28/20 .COMPLEX #30 tab Allergies Allergy/AdvReac Type Severity Reaction Status Date / Time phenobarbital [PHENOBARBITAL] Allergy Mild hives Verified 01/25/20 10:12 metronidazole [From FLAGYL] Allergy Unknown hives Verified 01/25/20 10:12 Review of Systems Constitutional Constitutional: Denies chills, Denies fatigue, Denies fever(s), Denies frequent falls, Denies lethargy and Denies weakness Eyes Eyes: Denies change in vision, Denies eye discharge, Denies irritation and Denies loss of vision ENT Ears, Nose, Mouth, and Throat: Denies change in voice, Denies dizziness, Reports nasal congestion, Denies neck pain, Denies sore throat and Denies throat swelling Cardiovascular Cardiovascular: Denies chest pain, Denies irregular heart rhythm, Denies lightheadedness, Denies palpitations, Denies dyspnea, Denies dyspnea on exertion and Denies orthopnea Respiratory Respiratory: Reports cough, Denies dyspnea, Denies dyspnea on exertion and Reports wheezing Gastrointestinal Gastrointestinal: Denies abdominal pain, Denies change in bowel habits, Denies diarrhea, Denies nausea and Denies vomiting Musculoskeletal Musculoskeletal: Denies neck pain and Denies numbness Integumentary/Breasts Skin/Breast: Denies pruritus, Denies erythema, Denies rash and Denies wounds Neurologic Neurologic: Denies behavioral changes, Denies confusion, Denies dizziness, Denies frequent falls, Denies loss of vision, Denies numbness and Denies weakness Psychiatric Psychiatric: Denies anxiety, Denies behavioral changes, Denies confusion, Denies depression, Denies homicidal ideation and Denies suicidal ideation Endocrine Endocrine: Denies fatigue, Denies flushing and Denies palpitations Hematologic/Lymphatic Hematologic/Lymphatic: Denies easy bruising Allergic/Immunologic Allergic/Immunologic: Denies urticaria, Denies throat swelling and Reports wheezing Patient History Medical History Allergies (~1996) Asthma (~1993) Bipolar 1 disorder Bronchospasm C. difficile colitis Carpal tunnel syndrome (~2014) Cervical cancer (~2010) Chicken pox (~1962) Colon cancer Depression (~1992) Dyspareunia Former smoker, stopped smoking in distant past Hand pain (~2016) Hemorrhoid (~2017) History of cervical cancer History of uterine cancer (~2010) Hyperlipidemia Hypertension (~2003) Lymphedema (~03/2012) Measles (~1970) Mumps (~1965) Rarely consumes alcohol Seizures Sepsis Stress incontinence Vaginal smear following partial hysterectomy Vision disorder Surgical History Anesthesia H/O cervical biopsy (~06/2011) History of hysterectomy History of surgery (~08/26/11) S/P cervical spinal fusion (~06/30/00) S/P partial hysterectomy Status post cervical discectomy Family History Father Hypertension Mother Diabetes mellitus Hypertension Hyperlipidemia Depression Stroke Mental health problem Brother Depression Mental health problem Grandfather Hypertension Old age Grandmother Cancer Grandfather Stroke Hypertension Grandmother Cancer Social History Smoking Status: Never smoker Smoking Status: Never smoker alcohol intake frequency: 0-2 drinks per day Substance Use Type: does not use Exam Narrative Exam Narrative: GENERAL: [60] year old patient appears stated age. Well- nourished, well-developed patient, in mild distress. Deep breath causes bronchospastic type cough HEAD: Atraumatic. Normocephalic. EYES: Pupils equal round and reactive. Extraocular motions intact. No scleral icterus. No injection or drainage. ENT: Nose without bleeding, purulent drainage. Throat without erythema, tonsillar hypertrophy or exudate. Airway patent. NECK: Trachea midline. Non tender CARDIOVASCULAR: Regular rate and rhythm without murmurs, gallops, or rubs. RESPIRATORY: Wheeze noted bilaterally, more significant in bases. No rales or rhonchi GASTROINTESTINAL: Abdomen soft, non-tender, nondistended. EXTREMITIES: No edema or joint tenderness. BACK: Nontender without deformity or crepitance. No flank tenderness. NEURO: AOx3. SKIN: No rash or erythema of visible areas Initial Vital Signs Initial Vital Signs: Vital Signs Temperature 98.6 F 10/28/20 01:14 Pulse Rate 83 10/28/20 01:14 Respiratory Rate 22 10/28/20 01:14 Blood Pressure 123/58 L 10/28/20 01:14 Pulse Oximetry 97 10/28/20 01:14 Course Course Course Narrative: Initial peak flow in the to 90s. Once COVID back patient started with a DuoNeb and followed with a few albuterol. Patient demonstrates tremendous improvement and admits to feeling significant Nia better. Patient moving air in all quadrants. Chest x-ray shows no pneumonia and COVID swab is negative. Peak flow improved to 370 Orders Ordered: ED Orders 10/28/20 01:15 COVID19 -Nasal swab/Pre-Proc Stat 10/28/20 01:18 XR chest 1V Stat Discontinued Medications Acetaminophen/Codeine Phosphate (Acetaminophen/Codeine Soln 5 Ml Solution) 10 ml PO NOW ONE Stop: 10/28/20 01:59 Last Admin: 10/28/20 02:02 Dose: 10 ml Documented by: Albuterol/Ipratropium (Albuterol/Ipratropium 3 Ml Ampul) 3 ml INH NOW ONE Stop: 10/28/20 01:45 Last Admin: 10/28/20 01:46 Dose: 3 ml Documented by: NIYAH Albuterol/Ipratropium (Albuterol/Ipratropium 3 Ml Ampul) 3 ml INH NOW ONE Stop: 10/28/20 01:55 Last Admin: 10/28/20 01:58 Dose: 3 ml Documented by: NIYAH Prednisone (Prednisone 20 Mg Tablet) 40 mg PO NOW ONE Stop: 10/28/20 01:19 Last Admin: 10/28/20 01:21 Dose: 40 mg Documented by: YVAN Vital Signs Vital signs: Vital Signs - 8 hr 10/28/20 01:14 10/28/20 01:43 10/28/20 01:58 Temperature 98.6 F Pulse Rate 83 84 73 Respiratory Rate 22 20 20 Blood Pressure 123/58 L Pulse Oximetry 97 96 97 MDM - SOB/Dyspnea Lab Data Labs: Lab Results 10/28/20 Range/Units 01:15 SARS-CoV-2 (PCR) Negative (Negative) Discharge Plan Departure Patient Disposition: Home Clinical Impression: Asthma with exacerbation Qualifiers: Asthma severity: moderate Asthma persistence: unspecified Qualified Code(s): J45.901 - Unspecified asthma with (acute) exacerbation Instructions: DI for Asthma -- Adult Activity Restrictions/Additional Instructions: *You have been diagnosed with [bronchospastic cough, likely triggered by a viral respiratory infection earlier in the week and perhaps environmental allergens now. Your COVID swab was negative and] *What to do: *Take medications as directed *Follow up with your primary care provider in 2-3 days, call for an appointment. Let them know you were seen in the Emergency Department and that we ask that you be seen in follow up *Return to ER if you should have any new, worsening or concerning symptoms Prescriptions: New prednisone 10 mg tablet See Rx Instructions .ROUTE .COMPLEX Qty: 30 RF: 0 No Action triamterene-hydrochlorothiazid 75-50 mg tablet 1 tab PO DAILY Qty: 90 RF: 2 lisinopril 5 mg tablet 5 mg PO DAILY Qty: 90 RF: 2 sertraline 100 mg tablet 100 mg PO DAILY Qty: 90 RF: 3 albuterol sulfate [ProAir HFA] 90 mcg/actuation HFA aerosol inhaler 1 puff INHALATION Q4-6H PRN (Reason: shortness of breath or wheezing) Qty: 6.7 RF: 3 Calcium 600 with Vitamin D3 RF: 0 Referrals: Eri Cheema ARNP [Primary Care Provider] -
[2020-10-28 01:14] VITALS: BP 123/58; PULSE 83; RESP 22; TEMP 37; O2SAT 97; BMI 30.1
--- NOTE | 2020-10-28 01:18 | DI.RAD.S_ITS ---
PROCEDURE: XR CHEST 1V INDICATIONS: cough TECHNIQUE: One view of the chest was acquired. COMPARISON: [facility], CR, XR CHEST 2V, 11/09/2018, 11:05. FINDINGS: Surgical changes and devices: Postsurgical changes of cervical fusion, incompletely imaged. Lungs and pleura: Lungs are clear. No pleural effusions or pneumothorax. Mediastinum: Mediastinal contours appear normal. Heart size is normal. Bones and chest wall: No suspicious bony lesions. Overlying soft tissues appear unremarkable. IMPRESSION: No evidence of an acute cardiopulmonary abnormality. Dictated by: Murali Golden D.O. on 10/28/2020 at 6:06 Approved by: Murali Golden D.O. on 10/28/2020 at 6:07
[2020-10-28] MEDS: predniSONE 20 MG TABLET 40 MG PO (01:21)
[2020-10-28 01:33] LABS: COVID19 -Nasal RAPID Negative (Negative)
[2020-10-28 01:43] VITALS: PULSE 84; RESP 20; O2SAT 96
[2020-10-28] MEDS: ALBUTEROL/IPRATROPIUM 3 ML AMPUL INH ×2 (01:46→01:58)
[2020-10-28 01:58] VITALS: PULSE 73; RESP 20; O2SAT 97
[2020-10-28] MEDS: ACETAMINOPHEN/CODEINE SOLN 5 ML SOLUTION 10 ML PO (02:02)
[2020-10-28 02:11] VITALS: BP 115/55; PULSE 81; RESP 22; O2SAT 100
== END 2020-10-28 02:12 | disposition home or self-care (01) ==
PROVIDERS: Emergency Provider Emergency Medicine; PCP Nurse Practitioner
DX: J45.901 Unspecified asthma with (acute) exacerbation (principal); Z20.822 Contact with and (suspected) exposure to COVID-19
CPT/HCPCS: 71045; 87635; 94150; 94640; 99284; C9803

== ENCOUNTER 2021-08-27 11:39 | Emergency (ER) | payer OTHER, SELFPAY ==
[2021-08-27 12:00] VITALS: BP 146/67; PULSE 65; RESP 22; TEMP 36.6; O2SAT 97
[2021-08-27 12:23] LABS: Add Manual Diff / Slide Review NO; Basophils Absolute Auto 0 /uL (0-100); Basophils Percent Auto 0.6 % (0-2); Eosinophils Absolute Auto 100 /uL (0-450); Eosinophils Percent Auto 1.8 % (2-4); Hematocrit 39.4 % (36-46); Hemoglobin 13.5 g/dL (12.0-16.0); Lymphocytes Absolute Auto 1400 /uL (1100-4500); Lymphocytes Percent Auto 20.3 % (25-40); Mean Corpuscular HGB Conc 34.3 % (30-36); Mean Corpuscular Volume 87.6 fL (80-100); Monocytes Absolute Auto 600 /uL (0-900); Monocytes Percent Auto 8.8 % (3-14); Neutrophils Absolute Auto 4600 /uL (1500-7000); Neutrophils Percent Auto 68.5 % (50-75); Platelet Count 338 X10^3/uL (150-400); Red Cell Distribution Width 13.4 % (11.6-14.8); White Blood Cell Count 6.7 X10^3/uL (4.5-11.0)
[2021-08-27 12:28] LABS: Alanine Aminotransferase 19 IU/L (<35); Albumin 4.9 g/dL (3.5-5.0); Albumin Globulin Ratio 1.3 (1.0-2.8); Alkaline Phosphatase 83 U/L (38-126); Aspartate Aminotransferase 23 IU/L (14-36); Bilirubin Total 0.4 mg/dL (0.2-1.3); Blood Urea Nitrogen 20 mg/dL (7-17); Calcium 10.5 mg/dL (8.4-10.2); Carbon Dioxide 27 mmol/L (22-32); Chloride 105 mmol/L (98-107); Estimated Glomerular Filt Rate 53.3 mL/min (>60); Globulin 3.9 g/dL (1.7-4.1); Glucose 97 mg/dL (80-110); HEMOLYSIS < 15 (0-50); Lipase 280 U/L (23-300); Potassium 3.9 mmol/L (3.4-5.1); Sodium 142 mmol/L (137-145); Total Protein 8.8 g/dL (6.3-8.2)
--- NOTE | 2021-08-27 14:19 | DI.CT.S_ITS ---
PROCEDURE: CT ABDOMEN PELVIS WO CON INDICATIONS: abdominal pain TECHNIQUE: After the administration of oral contrast, 5 mm thick sections acquired from the diaphragms to the symphysis. 5 mm coronal and sagittal reformats were performed. For radiation dose reduction, the following was used: automated exposure control, adjustment of mA and/or kV according to patient size. COMPARISON: None. FINDINGS: Image quality: Excellent. ABDOMEN: Lung bases: Lung bases are clear. Heart size is normal. Solid organs: Liver is normal in size. Gallbladder is normal . Pancreas is normal in size. Spleen is normal in size. No adrenal nodules. Both kidneys are normal in size, without hydronephrosis or nephrolithiasis. Nonobstructing punctate left renal calculus. Peritoneum and bowel: Bowel loops demonstrate normal wall thickness and caliber. No free fluid or air. Nodes and vessels: No retroperitoneal or mesenteric adenopathy by size criteria. Aorta and inferior vena cava are normal in size. Miscellaneous: No ventral hernias. PELVIS: Genitourinary: Bladder wall thickness is normal. Miscellaneous: No inguinal hernias or adenopathy. Bones: No suspicious bony lesions. No vertebral body compression fractures. IMPRESSION: No acute finding to explain abdominal pain. Nonobstructing punctate left renal calculus. Dictated by: Shayne Lassiter M.D. on 08/27/2021 at 14:58 Approved by: Shayne Lassiter M.D. on 08/27/2021 at 15:00
--- NOTE | 2021-08-27 14:20 | ED_ITS ---
HPI - Abdominal Pain <Triston Grewal PA-C - Last Filed: 08/27/21 15:26> General Chief Complaint: Abdominal Pain Stated Complaint: Severe lower abd pain, vomiting Time Seen by Provider: 08/27/21 14:07 Source: patient Mode of arrival: Ambulatory History of Present Illness HPI narrative: Patient is a 61-year-old female who presents to the ED with severe abdominal pain that started 2 days ago. She reports that the pain was so severe it caused her to have extreme pain and nausea and vomiting. She states that the pain would last for episodes last about 3 hours in length pain comes and goes has been continuous for the the last 48 hours with this alternating pattern. When the pain is intense she is describing it as a knife in her abdomen and rates the 20/10. She has a history of a hysterectomy as result of cervical and uterine cancer that she was treated with just surgery that was 10 years ago. She still has her ovaries no other abdominal surgeries reported no recent trauma she also reports that she has been having fever and chills over the last few days her stools have been pencil thin stools with evidence of mucus being passed. The mucus is a concern for the patient and as result she is here for evaluation. Her pain right now is rating a 4/10 and is stable. Related Data Home Medications Medication Instructions Recorded Confirmed Calcium 600 with Vitamin D3 07/03/18 01/25/20 Previous Rx's Medication Instructions Recorded sertraline 100 mg tablet 100 mg PO DAILY #90 tab 09/21/20 prednisone 10 mg tablet See Rx Instructions .ROUTE 10/28/20 .COMPLEX #30 tab albuterol sulfate 90 mcg/actuation See Rx Instructions .ROUTE 11/05/20 aerosol inhaler .COMPLEX #8.5 g lisinopril 5 mg tablet See Rx Instructions .ROUTE 02/18/21 .COMPLEX #90 tab triamterene 75 1 tab PO DAILY #90 tab 02/18/21 mg-hydrochlorothiazide 50 mg tablet hydrocodone 10 mg-acetaminophen 1 tab PO Q4-6H PRN #14 tab 08/27/21 325 mg tablet tamsulosin 0.4 mg capsule (Flomax) 0.4 mg PO DAILY #14 cap 08/27/21 Allergies Allergy/AdvReac Type Severity Reaction Status Date / Time phenobarbital [PHENOBARBITAL] Allergy Mild hives Verified 01/25/20 10:12 metronidazole [From FLAGYL] Allergy Unknown hives Verified 01/25/20 10:12 Review of Systems <Triston Grewal PA-C - Last Filed: 08/27/21 15:26> Review of Systems ROS Unobtainable: All systems reviewed & are unremarkable except as noted in HPI and below Constitutional Constitutional: Denies chills, Denies fatigue, Denies fever(s), Denies frequent falls, Denies lethargy and Denies weakness Eyes Eyes: Denies change in vision, Denies eye discharge, Denies irritation and Denies loss of vision ENT Ears, Nose, Mouth, and Throat: Denies change in voice, Denies dizziness, Denies neck pain, Denies sore throat and Denies throat swelling Cardiovascular Cardiovascular: Denies chest pain, Denies irregular heart rhythm, Denies lightheadedness, Denies palpitations, Denies dyspnea, Denies dyspnea on exertion and Denies orthopnea Respiratory Respiratory: Denies cough, Denies dyspnea, Denies dyspnea on exertion and Denies wheezing Gastrointestinal Gastrointestinal: Reports abdominal pain, Reports change in bowel habits, Re ports change in stool character, Reports diarrhea, Denies nausea and Denies vomiting Genitourinary Genitourinary: Denies hematuria, Denies flank pain, Denies urinary incontinence and Denies urinary urgency Musculoskeletal Musculoskeletal: Denies back pain, Denies muscle weakness, Denies neck pain, Den ies numbness and Denies tingling Integumentary/Breasts Skin/Breast: Denies pruritus, Denies erythema, Denies rash and Denies wounds Neurologic Neurologic: Denies behavioral changes, Denies confusion, Denies dizziness, Denies frequent falls, Denies loss of vision, Denies numbness, Denies tingling and Denies weakness Psychiatric Psychiatric: Denies anxiety, Denies behavioral changes, Denies confusion, Denies depression, Denies homicidal ideation and Denies suicidal ideation Endocrine Endocrine: Denies fatigue, Denies flushing and Denies palpitations Hematologic/Lymphatic Hematologic/Lymphatic: Denies easy bruising Allergic/Immunologic Allergic/Immunologic: Denies urticaria, Denies throat swelling and Denies wheezing Patient History <Triston Grewal PA-C - Last Filed: 08/27/21 15:26> Medical History Allergies (~1996) Asthma (~1993) Bipolar 1 disorder Bronchospasm C. difficile colitis Carpal tunnel syndrome (~2014) Cervical cancer (~2010) Chicken pox (~1962) Colon cancer Depression (~1992) Dyspareunia Former smoker, stopped smoking in distant past Hand pain (~2016) Hemorrhoid (~2017) History of cervical cancer History of uterine cancer (~2010) Hyperlipidemia Hypertension (~2003) Lymphedema (~03/2012) Measles (~1969) Mumps (~1964) Rarely consumes alcohol Seizures Sepsis Stress incontinence Vaginal smear following partial hysterectomy Vision disorder Surgical History Anesthesia H/O cervical biopsy (~06/2011) History of hysterectomy History of surgery (~08/26/11) S/P cervical spinal fusion (~06/30/00) S/P partial hysterectomy Status post cervical discectomy Family History Father Hypertension Mother Diabetes mellitus Hypertension Hyperlipidemia Depression Stroke Mental health problem Brother Depression Mental health problem Grandfather Hypertension Old age Grandmother Cancer Grandfather Stroke Hypertension Grandmother Cancer Social History Smoking Status: Never smoker Smoking Status: Never smoker alcohol intake frequency: 0-2 drinks per day Substance Use Type: does not use Exam <Triston Grewal PA-C - Last Filed: 08/27/21 15:26> Initial Vital Signs Initial Vital Signs: Vital Signs Temperature 97.8 F 08/27/21 12:00 Pulse Rate 65 08/27/21 12:00 Respiratory Rate 22 08/27/21 12:00 Blood Pressure 146/67 H 08/27/21 12:00 Pulse Oximetry 97 08/27/21 12:00 Const General: cooperative, healthy appearing, comfortable, well developed and well groomed Nutritional Appearance: average body habitus Orientation: Orientation [facility] Head: normal to inspection, normocephalic and atraumatic Ears: hearing grossly normal bilaterally and external ears normal Nose: external nose normal Face and sinus: normal facial exam, sinuses nontender and face symmetric Mouth: oral mucosae normal, lip normal, tongue normal and salivary ducts normal Teeth and gingiva: dentition normal and gingiva normal Throat: posterior oropharynx normal Eyes General: appearance normal, both eyes and all related structures Pupils: PERRL Resp Effort & Inspection: normal respiratory effort and able to speak in complete sentences Auscultation: clear to auscultation bilaterally Cardio Palpation: normal PMI Rate: regular rate Rhythm: regular rhythm Heart Sounds: S1 normal and S2 normal GI Inspection: distended Palpation: soft and tender Percussion: dullness to percussion Auscultation: normal bowel sounds Skin General: no rashes or lesions noted <DO Lilly Howell Last Filed: 08/28/21 07:38> Initial Vital Signs Initial Vital Signs: Vital Signs Temperature 97.8 F 08/27/21 12:00 Pulse Rate 65 08/27/21 12:00 Respiratory Rate 22 08/27/21 12:00 Blood Pressure 146/67 H 08/27/21 12:00 Pulse Oximetry 97 08/27/21 12:00 Course <Triston Grewal PA-C - Last Filed: 08/27/21 15:26> Orders Ordered: ED Orders 08/27/21 12:00 Complete Blood Count AUTO DIFF Stat Comprehensive Metabolic Panel Stat Lipase Stat 08/27/21 12:03 EKG-12 Lead Stat 08/27/21 14:19 CT abdomen pelvis wo con Stat Vital Signs Vital signs: Vital Signs - 8 hr 08/27/21 12:00 Temperature 97.8 F Pulse Rate 65 Respiratory Rate 22 Blood Pressure 146/67 H Pulse Oximetry 97 <DO Lilly Howell Last Filed: 08/28/21 07:38> Orders Ordered: ED Orders 08/27/21 12:00 Complete Blood Count AUTO DIFF Stat Comprehensive Metabolic Panel Stat Lipase Stat 08/27/21 12:03 EKG-12 Lead Stat 08/27/21 14:19 CT abdomen pelvis wo con Stat Vital Signs Vital signs: Vital Signs - 8 hr 08/27/21 12:00 Temperature 97.8 F Pulse Rate 65 Respiratory Rate 22 Blood Pressure 146/67 H Pulse Oximetry 97 MDM - Abdominal Pain <TAMEKA Silva Last Filed: 08/27/21 15:26> Differential Diagnosis Differential diagnosis: Likely abdominal pain and calculus of kidney Lab Data Result diagrams: 08/27/21 12:00 08/27/21 12:00 Labs: Lab Results 08/27/21 08/27/21 Range/Units 12:00 12:00 WBC 6.7 (4.5-11.0) X10^3/uL RBC 4.50 (4.0-5.2) X10^6/uL Hgb 13.5 (12.0-16.0) g/dL Hct 39.4 (36-46) % MCV 87.6 (80-100) fL MCH 30.0 (26-34) PG MCHC 34.3 (30-36) % RDW 13.4 (11.6-14.8) % Plt Count 338 (150-400) X10^3/uL Neut % (Auto) 68.5 (50-75) % Lymph % (Auto) 20.3 L (25-40) % Randolph % (Auto) 8.8 (3-14) % Eos % (Auto) 1.8 L (2-4) % Baso % (Auto) 0.6 (0-2) % Neut # (Auto) 4600 (5411-4957) /uL Lymph # (Auto) 1400 (1992-1791) /uL Randolph # (Auto) 600 (0-900) /uL Eos # (Auto) 100 (0-450) /uL Baso # (Auto) 0 (0-100) /uL Sodium 142 (137-145) mmol/L Potassium 3.9 (3.4-5.1) mmol/L Chloride 105 (98-107) mmol/L Carbon Dioxide 27 (22-32) mmol/L BUN 20 H (7-17) mg/dL Creatinine 1.05 H (0.52-1.04) mg/dL Estimated GFR 53.3 L (>60) mL/min BUN/Creatinine Ratio 19.0 (6-22) Glucose 97 (80-110) mg/dL Calcium 10.5 H (8.4-10.2) mg/dL Total Bilirubin 0.4 (0.2-1.3) mg/dL AST 23 (14-36) IU/L ALT 19 (<35) IU/L Alkaline Phosphatase 83 (38-126) U/L Total Protein 8.8 H (6.3-8.2) g/dL Albumin 4.9 (3.5-5.0) g/dL Globulin 3.9 (1.7-4.1) g/dL Albumin/Globulin Ratio 1.3 (1.0-2.8) Lipase 280 (23-300) U/L Point of care testing: Urine Dip Bedside Urine Glucose Negative Bedside Urine Bilirubin - Negative Bedside Urine Ketone - Negative Urine Specific Clayton 1.015 Bedside Urine Occult Blood - Negative Bedside Urine pH 6.0 Bedside Urine Protein - Negative Bedside Urine Urobilinogen - Negative Bedside Urine Nitrite - Negative Bedside Urine Leukocytes - Negative Esterase Imaging Data CT scan - abdomen/pelvis: Radiologist's Impression: PROCEDURE:? CT ABDOMEN PELVIS WO CON ? INDICATIONS:? abdominal pain ? TECHNIQUE:? After the administration of oral contrast, 5 mm thick sections acquired from the diaphragms to the symphysis.? 5 mm coronal and sagittal reformats were performed.? For radiation dose reduction, the following was used:? automated exposure control, adjustment of mA and/or kV according to patient size.? ? COMPARISON:? None. ? FINDINGS:? Image quality:? Excellent.? ? ABDOMEN:? Lung bases:? Lung bases are clear.? Heart size is normal.? ? Solid organs:? Liver is normal in size.? Gallbladder is normal .? Pancreas is normal in size.? Spleen is normal in size.? No adrenal nodules.? Both kidneys are normal in size, without hydronephrosis or nephrolithiasis.? Nonobstructing punctate left renal calculus.? ? ? Peritoneum and bowel:? Bowel loops demonstrate normal wall thickness and caliber.? No free fluid or air.? ? Nodes and vessels:? No retroperitoneal or mesenteric adenopathy by size criteria.? Aorta and inferior vena cava are normal in size.? ? Miscellaneous:? No ventral hernias.? ? ? PELVIS:? Genitourinary:? Bladder wall thickness is normal.? ? Miscellaneous:? No inguinal hernias or adenopathy.? ? Bones:? No suspicious bony lesions.? No vertebral body compression fractures.? ? IMPRESSION:? No acute finding to explain abdominal pain.? Nonobstructing punctate left renal calculus. ? ? Dictated by: Shayne Lassiter M.D. on 08/27/2021 at 14:58 ? ? Approved by: Shayne Lassiter M.D. on 08/27/2021 at 15:00?? [facility] Narrative Medical decision making narrative: Patient was evaluated for abdominal pain today lab work and CT show evidence of a kidney stone on the left side which is aligns well with her symptoms today see visible to treat her outpatient will prescribe Flomax and pain medications and she should follow up with her PCP in 1-2 weeks. <Jose Luis Russell DO - Last Filed: 08/28/21 07:38> Lab Data Labs: Lab Results 08/27/21 08/27/21 Range/Units 12:00 12:00 WBC 6.7 (4.5-11.0) X10^3/uL RBC 4.50 (4.0-5.2) X10^6/uL Hgb 13.5 (12.0-16.0) g/dL Hct 39.4 (36-46) % MCV 87.6 (80-100) fL MCH 30.0 (26-34) PG MCHC 34.3 (30-36) % RDW 13.4 (11.6-14.8) % Plt Count 338 (150-400) X10^3/uL Neut % (Auto) 68.5 (50-75) % Lymph % (Auto) 20.3 L (25-40) % Randolph % (Auto) 8.8 (3-14) % Eos % (Auto) 1.8 L (2-4) % Baso % (Auto) 0.6 (0-2) % Neut # (Auto) 4600 (4203-2426) /uL Lymph # (Auto) 1400 (8818-3013) /uL Randolph # (Auto) 600 (0-900) /uL Eos # (Auto) 100 (0-450) /uL Baso # (Auto) 0 (0-100) /uL Sodium 142 (137-145) mmol/L Potassium 3.9 (3.4-5.1) mmol/L Chloride 105 (98-107) mmol/L Carbon Dioxide 27 (22-32) mmol/L BUN 20 H (7-17) mg/dL Creatinine 1.05 H (0.52-1.04) mg/dL Estimated GFR 53.3 L (>60) mL/min BUN/Creatinine Ratio 19.0 (6-22) Glucose 97 (80-110) mg/dL Calcium 10.5 H (8.4-10.2) mg/dL Total Bilirubin 0.4 (0.2-1.3) mg/dL AST 23 (14-36) IU/L ALT 19 (<35) IU/L Alkaline Phosphatase 83 (38-126) U/L Total Protein 8.8 H (6.3-8.2) g/dL Albumin 4.9 (3.5-5.0) g/dL Globulin 3.9 (1.7-4.1) g/dL Albumin/Globulin Ratio 1.3 (1.0-2.8) Lipase 280 (23-300) U/L Point of care testing: Urine Dip Bedside Urine Glucose Negative Bedside Urine Bilirubin - Negative Bedside Urine Ketone - Negative Urine Specific Clayton 1.015 Bedside Urine Occult Blood - Negative Bedside Urine pH 6.0 Bedside Urine Protein - Negative Bedside Urine Urobilinogen - Negative Bedside Urine Nitrite - Negative Bedside Urine Leukocytes - Negative Esterase Discharge Plan Departure Patient Disposition: Home Clinical Impression: Calculus of kidney, Abdominal pain Instructions: DI for Kidney Stones Activity Restrictions/Additional Instructions: You were evaluated today for abdominal pain and found to have a kidney stone on the left side that I think aligns well with the symptoms. I prescribed Flomax and some pain medications to the pharmacy he requested you can pick those up at your convenience you should follow-up with your PCP in 1-2 weeks if your symptoms do not improve or you have worsening symptoms he can return to the emergency room for re-evaluation. Prescriptions: New tamsulosin [Flomax] 0.4 mg capsule 0.4 mg PO DAILY Qty: 14 0RF hydrocodone-acetaminophen 10-325 mg tablet 1 tab PO Q4-6H PRN (Reason: pain) Qty: 14 0RF No Action albuterol sulfate 90 mcg/actuation HFA aerosol inhaler See Rx Instructions .ROUTE .COMPLEX Qty: 8.5 10RF Dose Instruction: USE 1 INHALATION EVERY 4 TO 6 HOURS NEEDED FOR SHORTNESS OF BREATH OR WHE EZING Rx Instructions: USE 1 INHALATION EVERY 4 TO 6 HOURS NEEDED FOR SHORTNESS OF BREATH OR WHEEZING lisinopril 5 mg tablet See Rx Instructions .ROUTE .COMPLEX Qty: 90 3RF Dose Instruction: TAKE 1 TABLET DAILY AT NIGHT FOR BLOOD PRESSURE Rx Instructions: TAKE 1 TABLET DAILY AT NIGHT FOR BLOOD PRESSURE triamterene-hydrochlorothiazid 75-50 mg tablet 1 tab PO DAILY Qty: 90 1RF Rx Instructions: Take 1 tablet each morning for hypertension sertraline 100 mg tablet 100 mg PO DAILY Qty: 90 3RF Rx Instructions: Take 1 tab daily for depression and anxiety. prednisone 10 mg tablet See Rx Instructions .ROUTE .COMPLEX Qty: 30 0RF Rx Instructions: Day 1,2,3: 40mg PO Daily Day 4,5,6: 30mg PO Daily Day 7,8,9: 20mg PO Daily Day 10,11,12: 10mg PO Daily #30 Calcium 600 with Vitamin D3 0RF Referrals: Eri Cheema ARNP [Primary Care Provider] - <Jose Luis Russell DO - Last Filed: 08/28/21 07:38> Cosign ED Attending Cosignature Attestation: I was immediately available in the department for consultation. This documentation has been reviewed and I agree with assessment and plan. Supervised by Jose Luis Russell DO
[2021-08-27 15:32] VITALS: BP 122/57; PULSE 62; O2SAT 97
== END 2021-08-27 15:35 | disposition home or self-care (01) ==
PROVIDERS: Emergency Medicine; Emergency Provider Physician Assistant; PCP Nurse Practitioner
DX: N20.0 Calculus of kidney (principal)
CPT/HCPCS: 36415; 74176; 80053; 81003; 83690; 85025; 99284

== ENCOUNTER → 2021-08-30 12:30 | Outpatient (CLI) | payer OTHER, SELFPAY ==
[2021-08-30 15:48] LABS: Alanine Aminotransferase 19 IU/L (<35); Albumin 4.7 g/dL (3.5-5.0); Albumin Globulin Ratio 1.5 (1.0-2.8); Alkaline Phosphatase 83 U/L (38-126); Aspartate Aminotransferase 24 IU/L (14-36); Bilirubin Total 0.5 mg/dL (0.2-1.3); Blood Urea Nitrogen 18 mg/dL (7-17); Calcium 10.2 mg/dL (8.4-10.2); Carbon Dioxide 29 mmol/L (22-32); Chloride 103 mmol/L (98-107); Estimated Glomerular Filt Rate 52.7 mL/min (>60); Globulin 3.1 g/dL (1.7-4.1); Glucose 80 mg/dL (80-110); HEMOLYSIS < 15 (0-50); Lactate Dehydrogenase 349 U/L (313-618); Potassium 4.5 mmol/L (3.4-5.1); Sodium 138 mmol/L (137-145); Total Protein 7.8 g/dL (6.3-8.2)
[2021-09-02 15:26] LABS: Alpha-1-Globulin 0.3 g/dL (0.0-0.4); Alpha-2-Globulin 0.9 g/dL (0.4-1.0); Gamma Globulin 1.1 g/dL (0.4-1.8); Globulin Total 3.4 g/dL (2.2-3.9); Protein, Total 7.4 g/dL (6.0-8.5)
== END ==
PROVIDERS: PCP Nurse Practitioner; Referring Provider Nurse Practitioner; Visit Provider Nurse Practitioner
DX: N18.9 Chronic kidney disease, unspecified (principal); R77.8 Other specified abnormalities of plasma proteins
CPT/HCPCS: 36415; 80053; 83615; 84155; 84165

== ENCOUNTER → 2021-10-09 10:01 | Outpatient (CLI) | payer OTHER, SELFPAY ==
[2021-10-09 11:17] LABS: COVID19 -Nasal RAPID Negative (Negative)
== END ==
PROVIDERS: PCP Nurse Practitioner; Visit Provider Surgery
DX: Z01.812 Encounter for preprocedural laboratory examination (principal); Z20.822 Contact with and (suspected) exposure to COVID-19
CPT/HCPCS: 87635; C9803

== ENCOUNTER 2021-10-10 11:52 | Day surgery (SDC) | payer OTHER, SELFPAY ==
[2021-10-10] VITALS (7 sets, daily range): BP systolic 112–131; BP diastolic 46–74; PULSE 67–81; RESP 10–16; TEMP 36.2–36.8; O2SAT 94–98; BMI 30.9
[2021-10-10] MEDS: LACTATED RINGERS 1,000 ML 200 ML IV (12:02)
--- NOTE | 2021-10-10 13:16 | PM.PREOP ---
Pre-operative Note COVID-19 COVID-19 status: Negative Result date/Date tested (Pos, Neg/Pending): 10/09/21 Interval Note History & Physical reviewed/Exam performed by Physician: Yes Changes to H&P: No ASA Class (for procedural sedation): II
[2021-10-10] MEDS: fentaNYL 250 MCG/5 ML INJ IV (13:27)
[2021-10-10] MEDS: MIDAZOLAM 5 MG/5 ML VIAL IV (13:28)
--- NOTE | 2021-10-10 13:56 | PM.OP.COLON ---
Operative Date/Time/Diagnoses Date of procedure: 10/10/21 Time of procedure: 13:56 Pre-op diagnosis: Colon cancer screening Procedure & Clinicians Study performed: Colonoscopy Same procedure as scheduled: Yes Surgeon: Carlos Palmer Procedure Notes Procedure in detail: Procedure: The patient was brought to the endoscopy suite, placed in left lateral decubitus position. The patient was connected to monitoring devices. A time-out was performed. Sedation was administered. Once the patient was adequately sedated, a digital rectal exam was performed and was normal. The scope was then inserted and advanced with some difficulty to the cecum where the appendiceal orifice was identified and photographed. The scope was then slowly withdrawn over greater than 6 minutes. Mucosa was thoroughly inspected. There were no polyps. There was some sigmoid diverticulosis. The scope was retroflexed in the rectum. No abnormalities were noted. The scope was straightened and removed. The patient was awakened and brought to recovery. Versed: 8 mg Fentanyl: 225 mcg EBL: 0 Findings: Sigmoid diverticulosis Scope withdrawal time: 11 Sedation minutes: 28 Findings: divertiulosis Post-procedure Recommendations: Colonoscopy in 10 years Disposition: PACU
== END 2021-10-10 14:59 | disposition home or self-care (01) ==
PROVIDERS: PCP Nurse Practitioner; Referring Provider Surgery; Visit Provider Surgery
PROC: 0DJD8ZZ Inspection of Lower Intestinal Tract, Via Natural or Artificial Opening Endoscopic (ICD-10-PCS; CPT 45378; principal; 2021-10-10 13:00)
DX: R10.30 Lower abdominal pain, unspecified (principal); K57.30 Diverticulosis of large intestine without perforation or abscess without bleeding
CPT/HCPCS: 45378; 99152; 99153; J2250; J3010

== ENCOUNTER → 2022-01-04 08:54 | Outpatient (CLI) | payer OTHER, SELFPAY ==
[2022-01-04 10:11] LABS: Free T3, Triiodothyronine Free 3.67 pg/mL (2.77-5.27); Free T4, Direct Thyroxine 0.86 ng/dL (0.78-2.19)
[2022-01-04 10:25] LABS: Thyroid Stimulating Hormone 2.98 uIU/mL (0.47-4.68)
== END ==
PROVIDERS: PCP Nurse Practitioner; Referring Provider Nurse Practitioner; Visit Provider Nurse Practitioner
DX: E78.5 Hyperlipidemia, unspecified (principal); F32.9 Major depressive disorder, single episode, unspecified; I10 Essential (primary) hypertension; Z79.899 Other long term (current) drug therapy
CPT/HCPCS: 36415; 84439; 84443; 84481

== ENCOUNTER → 2022-03-19 16:48 | Outpatient (CLI) | payer OTHER, SELFPAY ==
[2022-03-19 18:38] LABS: Estradiol, Total 23.5 pg/mL
[2022-03-19 18:45] LABS: Appearance Urine UA CLEAR; Bilirubin Urine UA NEGATIVE (NEGATIVE); Color Urine UA YELLOW; Glucose Urine UA NEGATIVE (Negative); Ketones Urine UA NEGATIVE (NEGATIVE); Leukocyte Esterase Urine UA NEGATIVE (NEGATIVE); Nitrite Urine UA NEGATIVE (Negative); Occult Blood Urine UA NEGATIVE (Negative); Protein Urine UA NEGATIVE (Negative); Urobilinogen Urine UA 0.2 E.U./dL (0.2)
[2022-03-19 18:59] LABS: pH Urine UA 5.5 (4.5-8.0)
[2022-03-19 19:00] LABS: Amorphous Sediment Urine 1+; Bacteria Urine Occasional (0-1); Culture Indicated Urine Cult Not Indicated; RBC Urine None Seen (0-5/HPF); Squamous Epithelial Cell Urine 5-10 /HPF (0-5/HPF); WBC Urine 0-1/HPF (0-5/HPF)
== END ==
PROVIDERS: PCP Nurse Practitioner; Referring Provider Nurse Practitioner; Visit Provider Nurse Practitioner
DX: N18.9 Chronic kidney disease, unspecified (principal); I10 Essential (primary) hypertension; E28.0 Estrogen excess; N20.0 Calculus of kidney; R10.9 Unspecified abdominal pain
CPT/HCPCS: 36415; 81001; 82670

== ENCOUNTER → 2022-09-02 12:06 | Outpatient (CLI) | payer OTHER, SELFPAY ==
--- NOTE | 2022-09-02 12:07 | DI.MG.S_ITS ---
BILATERAL DIGITAL SCREENING MAMMOGRAM 3D/2D WITH CAD: 09/02/2022 CLINICAL: Routine screening. Family history of breast cancer. Comparison is made to exams dated: 07/10/2020 mammogram, 06/21/2019 mammogram, and 10/16/2017 mammogram - [facility]. There are scattered areas of fibroglandular density in both breasts (category b / 25%-50% glandular tissue). Current study was also evaluated with a Computer Aided Detection (CAD) system. No significant masses, calcifications, or other findings are seen in either breast. There has been no significant interval change. IMPRESSION: NEGATIVE There is no mammographic evidence of malignancy. A 1 year screening mammogram is recommended. Based on the Tyrer Cuzick model (a risk assessment model) the patient's lifetime risk is 6.1% and her 10 year risk is 2.6%. According to the ACR, ACS, and NCCN guidelines, an annual breast MRI exam along with mammogram is recommended if the patient's lifetime risk is 20% or greater. This exam was interpreted at Station ID: [id number]. NOTE: For mammograms, a report in lay terms will be sent to the patient. Approximately 15% of breast malignancies will not be visualized mammographically. In the management of a palpable breast mass, a negative mammogram must not discourage biopsy of a clinically suspicious lesion. Electronically Signed By: Chantelle castorena/anna marie:09/02/2022 13:36:15 letter sent: Normal Exam ACR BI-RADS Category 1: Negative 3341F
[2022-09-02 14:34] LABS: Add Manual Diff / Slide Review NO; Basophils Absolute Auto 0 /uL (0-100); Basophils Percent Auto 0.7 % (0-2); Eosinophils Absolute Auto 100 /uL (0-450); Eosinophils Percent Auto 1.5 % (2-4); Hematocrit 38.4 % (36-46); Hemoglobin 13.1 g/dL (12.0-16.0); Lymphocytes Absolute Auto 1300 /uL (1100-4500); Lymphocytes Percent Auto 20.9 % (25-40); Mean Corpuscular HGB Conc 34.2 % (30-36); Mean Corpuscular Hemoglobin 30.5 PG (26-34); Mean Corpuscular Volume 89.2 fL (80-100); Monocytes Absolute Auto 500 /uL (0-900); Monocytes Percent Auto 8.1 % (3-14); Neutrophils Absolute Auto 4300 /uL (1500-7000); Neutrophils Percent Auto 68.8 % (50-75); Platelet Count 238 X10^3/uL (150-400); Red Cell Distribution Width 13.6 % (11.6-14.8); White Blood Cell Count 6.3 X10^3/uL (4.5-11.0)
[2022-09-02 14:54] LABS: C-Reactive Protein Quant 0.7 mg/dL (<1.0); Erythrocyte Sedimentation Rate 31 MM/HR (0-20)
[2022-09-02 14:56] LABS: Rheumatoid Factor < 8.6 IU/mL (<12.0)
== END ==
PROVIDERS: PCP Nurse Practitioner; Referring Provider Nurse Practitioner; Visit Provider Nurse Practitioner
DX: Z12.31 Encounter for screening mammogram for malignant neoplasm of breast (principal); M19.90 Unspecified osteoarthritis, unspecified site; R79.82 Elevated C-reactive protein (CRP); Z80.3 Family history of malignant neoplasm of breast
CPT/HCPCS: 36415; 77063; 77067; 85025; 85651; 86140; 86430

== ENCOUNTER → 2023-09-17 15:21 | Outpatient (CLI) | payer BC, SELFPAY ==
--- NOTE | 2023-09-17 15:24 | DI.RAD.S_ITS ---
PROCEDURE: XR CHEST 2V INDICATIONS: cough TECHNIQUE: 2 views of the chest were acquired. COMPARISON: [facility], DENIS, XR CHEST 1V, 10/28/2020, 1:24. [facility], CR, XR CHEST 2V, 11/09/2018, 11:05. FINDINGS: Surgical changes and devices: ACDF of the lower spine. Lungs and pleura: Lungs are clear. No pleural effusions or pneumothorax. Mediastinum: Mediastinal contours are normal. Heart size is normal. Bones and chest wall: No suspicious bony abnormalities. Soft tissues appear unremarkable. IMPRESSION: No acute cardiopulmonary abnormality is seen. Dictated by: Norris Best M.D. on 09/17/2023 at 16:29 Approved by: Norris Best M.D. on 09/17/2023 at 16:29
== END ==
PROVIDERS: PCP Nurse Practitioner; Referring Provider Nurse Practitioner; Visit Provider Nurse Practitioner
DX: R05.9 Cough, unspecified (principal)
CPT/HCPCS: 71046

== ENCOUNTER → 2023-10-01 14:57 | Outpatient (CLI) | payer BC, SELFPAY ==
--- NOTE | 2023-10-01 | DI.MG.S_ITS ---
BILATERAL DIGITAL SCREENING MAMMOGRAM 3D/2D WITH CAD: 10/01/2023 CLINICAL: Routine screening. Family history of breast cancer. Comparison is made to exams dated: 09/02/2022 mammogram, 07/10/2020 mammogram, and 06/21/2019 mammogram - [facility]. There are scattered areas of fibroglandular density in both breasts (category b / 25%-50% glandular tissue). Current study was also evaluated with a Computer Aided Detection (CAD) system. There are benign vascular calcifications in the left breast. No significant masses, calcifications, or other findings are seen in either breast. There has been no significant interval change. IMPRESSION: BENIGN There is no mammographic evidence of malignancy. A 1 year screening mammogram is recommended. Based on the Tyrer Cuzick model (a risk assessment model) the patient's lifetime risk is 5.9% and her 10 year risk is 2.6%. According to the ACR, ACS, and NCCN guidelines, an annual breast MRI exam along with mammogram is recommended if the patient's lifetime risk is 20% or greater. This exam was interpreted at Station ID: [id number]. NOTE: For mammograms, a report in lay terms will be sent to the patient. Approximately 15% of breast malignancies will not be visualized mammographically. In the management of a palpable breast mass, a negative mammogram must not discourage biopsy of a clinically suspicious lesion. Electronically Signed By: Chantelle castorena/anna marie:10/02/2023 15:47:36 letter sent: Normal Exam ACR BI-RADS Category 2: Benign Finding(s) 3342F
== END ==
PROVIDERS: PCP Nurse Practitioner; Referring Provider Nurse Practitioner; Visit Provider Nurse Practitioner
DX: Z12.31 Encounter for screening mammogram for malignant neoplasm of breast (principal); Z80.3 Family history of malignant neoplasm of breast; R92.323 Mammographic fibroglandular density, bilateral breasts
CPT/HCPCS: 77063; 77067

== ENCOUNTER → 2023-10-21 11:21 | Outpatient (CLI) | payer BC, SELFPAY ==
[2023-10-21 12:32] LABS: Add Manual Diff / Slide Review NO; Basophils Absolute Auto 100 /uL (0-100); Basophils Percent Auto 0.8 % (0-2); Eosinophils Absolute Auto 100 /uL (0-450); Eosinophils Percent Auto 2.3 % (2-4); Hemoglobin 13.2 g/dL (12.0-16.0); Lymphocytes Absolute Auto 1400 /uL (1100-4500); Mean Corpuscular HGB Conc 33.8 % (30-36); Mean Corpuscular Hemoglobin 30.3 PG (26-34); Mean Corpuscular Volume 89.7 fL (80-100); Monocytes Absolute Auto 600 /uL (0-900); Monocytes Percent Auto 9.3 % (3-14); Neutrophils Absolute Auto 4200 /uL (1500-7000); Neutrophils Percent Auto 65.6 % (50-75); Platelet Count 360 X10^3/uL (150-400); Red Blood Cell Count 4.35 X10^6/uL (4.0-5.2); Red Cell Distribution Width 13.5 % (11.6-14.8); White Blood Cell Count 6.4 X10^3/uL (4.5-11.0)
[2023-10-21 13:03] LABS: Alanine Aminotransferase 25 IU/L (<35); Albumin 4.2 g/dL (3.5-5.0); Albumin Globulin Ratio 1.3 (1.0-2.8); Alkaline Phosphatase 109 U/L (38-126); Aspartate Aminotransferase 25 IU/L (14-36); BUN Creatinine Ratio 21.4 (6-22); Bilirubin Total 0.5 mg/dL (0.2-1.3); Blood Urea Nitrogen 22 mg/dL (7-17); Calcium 10.5 mg/dL (8.4-10.2); Carbon Dioxide 27 mmol/L (22-32); Chloride 105 mmol/L (98-107); Cholesterol 254 mg/dL (140-199); Estimated Glomerular Filt Rate > 60 mL/min (>60); Globulin 3.3 g/dL (1.7-4.1); Glucose 97 mg/dL (80-110); HDL Cholesterol 67 mg/dL (40-60); HEMOLYSIS < 15 (0-50); LDL Cholesterol Calculated 142 mg/dL (<100); Potassium 4.5 mmol/L (3.4-5.1); Sodium 139 mmol/L (137-145); Total Protein 7.5 g/dL (6.3-8.2); Triglycerides 224 mg/dL (35-150)
[2023-10-21 13:41] LABS: Microalbumin Urine Random < 0.6 mg/dL (0-1.6)
[2023-10-21 18:06] LABS: HIV 1 & 2 Ab/Ag 4th Gen Combo NEGATIVE (NEGATIVE); Hep C Virus Ab w/Reflex Quant NEGATIVE s/c (NEGATIVE)
[2023-10-23 05:29] LABS: Free T3, Triiodothyronine Free 4.49 pg/mL (2.77-5.27); Free T4, Direct Thyroxine 0.89 ng/dL (0.78-2.19)
[2023-10-23 05:42] LABS: Thyroid Stimulating Hormone 3.25 uIU/mL (0.47-4.68)
== END ==
LOC: LAB 11:22
PROVIDERS: PCP Nurse Practitioner; Referring Provider Nurse Practitioner; Visit Provider Nurse Practitioner
DX: Z00.00 Encounter for general adult medical examination without abnormal findings (principal); Z11.59 Encounter for screening for other viral diseases; Z11.4 Encounter for screening for human immunodeficiency virus [HIV]
CPT/HCPCS: 36415; 80053; 80061; 82043; 82570; 84439; 84443; 84481; 85025; 86803; 87389